=== PATIENT | female | born 1995 | race Caucasian/White ===

== ENCOUNTER → 2018-08-20 12:37 | Outpatient (CLI) | payer OTHER, SELFPAY ==
[2018-08-20 13:29] LABS: Absolute Lymphocyte Count 1.46 X10^3/ul (0.83-4.51); Absolute Neutrophil Count 7.5 X10^3/uL (2.0-7.7); Basophil# 0.02 X10^3/uL; Basophil% 0.2 % (0-1); Eosinophil# 0.14 X10^3/uL; Eosinophils% 1.4 % (0-5); Hematocrit 39.7 % (37-47); Hemoglobin 14.3 g/dl (12.0-15.0); Lymphocyte # 1.46 X10^3/ul (4.0); Lymphocyte % 14.9 % (19-41); Mean Corpuscular Hgb 31.7 pg (27.0-32.0); Mean Platelet Vol. 9.4 fl (6.2-12.0); Monocyte# 0.72 X10^3/uL; Monocyte% 7.3 % (0-10); Neutrophil # 7.47 X10^3/uL (2.7-7.7); Neutrophil % 76.1 % (47-70); Platelet Count 335 K/mm3 (150-450); RBC Distribution Width CV 11.8 % (11.6-14.6); RBC Distribution Width SD 37.6 fl (35.1-43.9); Red Blood Count 4.51 M/mm3 (4.2-5.4); White Blood Count 9.8 K/mm3 (4.4-11.0)
[2018-08-20 13:30] LABS: POSITIVE COUNT NO; POSITIVE DIFFERENTIAL NO; POSITIVE MORPHOLOGY NO
[2018-08-20 15:04] LABS: HIV - WCH Non-Reactive (Nonreactive); Rubella IgG 17.3 IU/mL
[2018-08-20 20:23] LABS: Chlamydia Trachomatis by PCR Negative (Negative); Neisserai gonorrhoeae by PCR Negative (Negative); Probe Check PASS; Sample Adequacy Control PASS; Specimen Processing Control PASS
[2018-08-22 01:17] LABS: Rapid Plasmin Reagin (RPR) NONREACTIVE (NONREACTIVE)
[2018-08-22 09:32] LABS: HEPATITIS B SURFACE AG Negative (Negative)
[2018-08-28 13:48] LABS: HPV APTIMA, High Risk Negative (Negative); HPV Reflexed? YES, CHARGE PATIENT
== END ==
PROVIDERS: Referring Provider Obstetrics & Gynecology; Visit Provider Obstetrics & Gynecology
DX: Z34.90 Encounter for supervision of normal pregnancy, unspecified, unspecified trimester (principal)
CPT/HCPCS: 36415; 85025; 86592; 86703; 86762; 86850; 86900; 87086; 87088; 87340; 87491; 87591; 87624; 88175; G0145

== ENCOUNTER → 2018-11-05 12:55 | Outpatient (CLI) | payer OTHER, MEDICAID, SELFPAY ==
[2018-10-15 09:12] VITALS: BMI 25.1
--- NOTE | 2018-11-05 12:59 | US_ITS ---
STUDY: SECOND AND THIRD TRIMESTER OBSTETRICAL ULTRASOUND REASON FOR EXAM: Female, 23 years old. Routine survey. LMP: June 23, 2018. TECHNIQUE: Transabdominal and Transvaginal TECHNICAL QUALITY: Adequate. PRIOR ULTRASOUND: None. FINDINGS: There is a single intrauterine fetus. The fetus is in a cephalic presentation. There is demonstrated cardiac activity with a heart rate of 146 bpm. There is a normal amniotic fluid volume. The largest amniotic fluid pocket measures 4.8 cm x 4.6 cm. The amniotic fluid index (DANIEL) is normal. The placenta is anterior in location and is not low lying. There are Grade 0 placental changes. The cervix measures 3.2 cm in length. The bilateral adnexal regions are normal. BIOMETRY: BPD: 4.7 cm: 20 weeks, 2 days HC: 17.42 cm: 20 weeks, 0 days AC: 14.3 cm: 19 weeks, 5 days FL: 2.88 cm: 18 weeks, 6 days CI: 80% FL/BPD: 61% FL/HC: FL/AC: 20% HC/AC: 1.22 age by current US: 19 weeks, 5 days. MELVIN by current US: March 27, 2019. Estimated weight: 289 grams, +/- 42 grams, 51 %. Age by LMP: 19 weeks, 2 days. MELVIN by LMP: March 30, 2019. ANATOMY: Gender: Female Cranium: Normal lateral ventricles. Normal choroid plexus. Normal cerebellum. Normal cisterna magna. Normal face, nose and lips. Chest: Normal 4-chamber heart. Abdomen/Pelvis: Normal diaphragm. Normal stomach. Normal abdominal wall. Normal cord insertion. Normal 3 vessel cord. Normal kidneys. Normal bladder. Spine: Normal cervical spine. Normal thoracic spine. Normal lumbar spine. Normal sacrum. Extremities: Normal bilateral upper extremities. Normal bilateral lower extremities. US/OB Anatomy Scan IMPRESSION: There is a single live intrauterine gestation with a mean gestational age of 19 weeks and 5 days. Electronically Signed: Bong Bradford MD at 15:41 EST Tel [phone], Service support ,
--- OUTSIDE RECORDS SUMMARY | 2018-12-22 16:39 | XMS RPT_ITS ---
:1995 Author Organization OHIP Support Name Relationship Address Phone MILADIS DIOR Unavailable 0 + [place], [place] [phone] [place] [address] ENTS Unavailable [address] + [address] [place] [address] GEOFF KAREN Unavailable 0 + [place] [address] MILADIS DIOR Unavailable 0 + [address] ENTS Unavailable [address] + [address] [place] [address] GEOFF, KAREN Unavailable 0 + [place] [address] MILADIS DIOR Unavailable 0 + [place], [place] [phone] [place] [address] ENTS Unavailable [address] + [address] [place] [address] GEOFF, KAREN Unavailable 0 + [place] [address] MILADIS DIOR Unavailable Unavailable + [facility] ENTS Unavailable [address] [place] [address] GEOFF, KAREN Unavailable Unavailable + MILADIS DIOR Unavailable . + [place], [place] [id number] [place] [address] ENTS Unavailable [address] [place] [address] GEOFF KAREN Unavailable . + [place] [address] DIOR, MILADIS Unavailable . + [place] [address] [facility] ENTS Unavailable [address] + [address] [place] [address] GEOFF, KAREN Unavailable . + [place] [address] DIOR, MILADIS Unavailable . + [place] [address] [facility] ENTS Unavailable [address] + [address] [place] [address] GEOFF, KAREN Unavailable . + [place] [address] DIOR, MILADIS Unavailable 0 + [place] [address] [facility] ENTS Unavailable [address] + [address] [place] [address] GEOFF, KAREN Unavailable 0 + [place] [address] [facility] ENTS Unavailable Unavailable + [place] [address] GEOFF, KAREN Unavailable . + [place] [address] [facility] ENTS Unavailable Unavailable + [place] [address] GEOFF, KAREN Unavailable . + [place] [address] Care Team Providers Name Role Phone Alem Rabago Attending Unavailable Primay Care Physicia, No Referring Unavailable Virginia Lugo D.C. Attending Unavailable Sheyla Agosto Attending Unavailable Alem Rabago Attending Unavailable Alem Rabago Attending Unavailable Alem Rabago Referring Unavailable Primay Care Physicia, No Primary Care Unavailable Sheyla Agosto Attending Unavailable Primay Care Physicia, No Referring Unavailable Sheyla Agosto Attending Unavailable Bruce Centeno Attending Unavailable Primay Care Physicia, No Referring Unavailable Sheyla Agosto Attending Unavailable Primay Care Physicia, No Referring Unavailable Sheyla Agosto Attending Unavailable Primay Care Physicia, No Primary Care Unavailable PROBLEMS PROBLEMS DATE TYPE CONDITION / CODE ATTENDING STATUS SOURCE 12/10/2018 Unknown Z34.01 - Encounter Padroni, Sheyla Active [place] for supervision of Community normal first Hospital , first Repository trimester / Z34.01(ICD-10) 12/10/2018 Unknown Z3A.24 - 24 weeks Surendra Sheyla Active [place] gestation of [facility] / Hospital Z3A.24(ICD-10) Repository 10/15/2018 Unknown Z23 - Encounter Sheyla Agosto Active [place] for immunization / [facility] Z23(ICD-10) Hospital Repository 11/28/2018 Unknown Z34.90 - Encounter Hima Active [place] for supervision of [facility] normal , Hospital unspecified, Repository unspecified trimester / Z34.90(ICD-10) PROCEDURES PROCEDURES No Procedure Records FoundRESULTS RESULTS MARBLE MACHINE OPERATOR OFFICE VISIT Observed: 12/10/2018 Status: F Source: [place] REPORT 1:57 PM [facility] [address] [place] [address]. [address] [place] [address] OFFICE VISIT Date of Service: 12/10/18 MR#: [id number] Acct: [id number] Name: YUE BROOKSQUINN Adams Rep #: [id number] : 1995 Provider: HERIBERTO Agosto Age/Sex: 23/F Location: [facility] [place] Status: Signed Intake Vital Signs12/10/18 Body Mass Index (BMI) 25.1 12/10/18 Height 5 ft 1 in 12/10/18 Weight: 146 lb 8 oz 12/10/18 Body Mass Index (BMI) 27.6 12/10/18 Blood Pressure 118/78 Intake Visit Reasons: 24 WEEK OB Turkish Rubber Required: No Is patient in pain?: No Allergies Penicillins Allergy (Mild, Verified 12/10/18 13:42) rash Medications vitamin,calcium,vwppzank-mzdk-jbuer acid tablet 1 tab PO DAILY 08/20/18 [History Confirmed 12/10/18] Last Menstral Period: 06/23/18 Zika: Zika virus screening: Negative : No PFSH PFSH Medical History diarrhea lasting a week (Acute) Family History Mother Crohns disease Sister Crohns disease Grandmother Lung cancer Grandfather Colon cancer Social History Smoking Status: Never smoker alcohol intake: never substance use type: does not use caffeine: Yes what type of physical activity do you participate in: walking frequency: 3-4 times per week seatbelt use: always do you feel safe at home: Yes additional 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 OB Visit MELVIN Calculator Estimated Delivery Date 03/30/19 Based on LMP (certain) 06/23/18 Current WG 24w 2d Number 1 Expected Delivery Route/Plan Specific Issue/Plans flu vaccine: given tdap vaccine: [] rhogam: NA LARC form signed: [] labor support person: Miladis pain management: epidural cut cord/dad catch: cord : yes PP control planned: [] special requests: [] Initial Weight: 130 lb Date Weight BP Urine PrFHR FuHt Pres MoCTX DilationFetal StVisit NoProviderComments E ot v te [place] G Effac lucose ed Visit Notes Visit Date: 12/10/18 No VB, LOF. Some upper back discomfort. Saw Dr. Garcia today. JUANY Borjas on 12/10/18 Visit Date: 11/12/18 no vb lof good fm n oregular ctx Alem Rabago MD on 11/12/18 Visit Date: 10/15/18 Nausea gone. NO VB, LOF. Did have some left sided pain 3 days ago and then stopped after 2 hr. JUANY Borjas on 10/15/18 Visit Date: 09/10/18 Doing well. Nausea improved. No VB, LOF JUANY Borjas on 09/10/18 ACOG First Trimester First Trimester: Discussed Diagnostics Diagnostics Labs Blood Type B POSITIVE 08/20/18 Antibody Screen NEGATIVE 08/20/18 Hct 39.7 % (37-47) 08/20/18 Hgb 14.3 g/dl (12.0-15.0) 08/20/18 Obstetrics Ultrasound 11/05/18 Rubella IgG Antibody 17.3 IU/mL 08/20/18 RPR NONREACTIVE (NONREACTIVE) 08/20/18 Hep Bs Antigen Negative (Negative) 08/20/18 Chlam trachomat DNA PCR Negative (Negative) 08/20/18 N.gonorrhoeae DNA (PCR) Negative (Negative) 08/20/18 Details: HIV: Urine Culture: Sequential Screen: NIPT Screen: ROS Const Reports system reviewed and no additional complaints, except as docu GI Denies nausea, Denies vomiting, Denies abdominal pain Exam Const General: cooperative Nutritional Appearance: well nourished GI Palpation: soft, nontender, other (gravid) Results [id number] Office Urine Glucose Negative Last Edit by Briseida Fraser on 12/10/18 13:44 Office Urine Protein Negative Last Edit by Briseida Fraser on 12/10/18 13:44 Assessment AND Plan Problems 1. Encounter for supervision of normal first in first trimester Z34.01 PRR MELVIN 03/30/19 monaefriensalvador Walter 2. 24 weeks gestation of Z3A.24 genetic, carrier, and NTD screening offered-considering Plan Orders placed: none Plans to continue to see Dr. Garcia; Heat, stretching etc Reviewed of labor precautions, movement/kick counts ACOG trimester education reviewed and updated See problem list details for updated plan of care Gestational age appropriate handout given RTO: 4 weeks Orders Orders: Coding Level of Care Code Off vis,est,level 3 Diagnoses Encounter for supervision of normal first in first trimester Z34.01 Trimester: first trimester 24 weeks gestation of Z3A.24 Weeks of gestation: 24 weeks 12/10/18 1357 <Electronically signed by Sheyla HARRINGTON> Date Sheyla HARRINGTON Cosigner Signature: Date (if applicable) CC: MARBLE MACHINE OPERATOR OFFICE VISIT Observed: 11/15/2018 Status: F Source: [place] REPORT 4:03 AM [facility] [address] [place] [address]. [address] [place] [address] OFFICE VISIT Date of Service: 11/12/18 MR#: [id number] Acct: [id number] Name: ANGELIQUE BROOKS Rep #: [id number] : 1995 Provider: Alem Rabago MD Age/Sex: 23/F Location: [facility] Status: Signed Intake Vital Signs11/12/18 Body Mass Index (BMI) 25.1 11/12/18 Weight: 138 lb 8 oz 11/12/18 Blood Pressure 124/82 H 10/15/18 Body Mass Index (BMI) 25.1 Intake Visit Reasons: 20 WEEK OB Chief Complaint: Est ob Is patient in pain?: No Allergies Penicillins Allergy (Mild, Verified 11/12/18 10:05) rash Medications vitamin,calcium,kbeuxdur-gvim-ibksz acid tablet 1 tab PO DAILY 08/20/18 [History Confirmed 10/15/18] Last Menstral Period: 06/23/18 Zika: Zika virus screening: Negative : No PFSH PFSH Medical History diarrhea lasting a week (Acute) Family History Mother Crohns disease Sister Crohns disease Grandmother Lung cancer Grandfather Colon cancer Social History Smoking Status: Never smoker alcohol intake: never substance use type: does not use caffeine: Yes what type of physical activity do you participate in: walking frequency: 3-4 times per week seatbelt use: always do you feel safe at home: Yes additional 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 OB Visit MELVIN Calculator Estimated Delivery Date 03/30/19 Based on LMP (certain) 06/23/18 Current WG 20w 5d Number 1 Expected Delivery Route/Plan Specific Issue/Plans flu vaccine: given tdap vaccine: [] rhogam: NA LARC form signed: [] labor support person: Miladis pain management: epidural cut cord/dad catch: cord : yes PP control planned: [] special requests: [] Initial Weight: 130 lb Date Weight BP Urine PrFHR FuHt Pres MoCTX DilationFetal StVisit NoProviderComments E ot v te [place] G Effac lucose ed Visit Notes Visit Date: 11/12/18 no vb lof good fm n oregular ctx Alem Rabago MD on 11/12/18 Visit Date: 10/15/18 Nausea gone. NO VB, LOF. Did have some left sided pain 3 days ago and then stopped after 2 hr. JUANY Borjas on 10/15/18 Visit Date: 09/10/18 Doing well. Nausea improved. No VB, LOF JUANY Borjas on 09/10/18 ACOG First Trimester First Trimester: Discussed Diagnostics Diagnostics Labs Blood Type B POSITIVE 08/20/18 Antibody Screen NEGATIVE 08/20/18 Hct 39.7 % (37-47) 08/20/18 Hgb 14.3 g/dl (12.0-15.0) 08/20/18 Obstetrics Ultrasound 11/05/18 Rubella IgG Antibody 17.3 IU/mL 08/20/18 RPR NONREACTIVE (NONREACTIVE) 08/20/18 Hep Bs Antigen Negative (Negative) 08/20/18 Chlam trachomat DNA PCR Negative (Negative) 08/20/18 N.gonorrhoeae DNA (PCR) Negative (Negative) 08/20/18 Details: HIV: Urine Culture: Sequential Screen: NIPT Screen: Results [email or web address] Office Urine Glucose Negative Last Edit by Luly Grimes on 11/12/18 10:16 Office Urine Protein Negative Last Edit by Luly Grimes on 11/12/18 10:16 Assessment AND Plan Problems 1. Encounter for supervision of normal first in first trimester Z34.01 PRR MELVIN 03/30/19 boyfriend Miladis 2. 16 weeks gestation of Z3A.16 genetic, carrier, and NTD screening offered-considering 3. ASCUS (atypical squamous cells of undetermined significance) on gynecologic Papanicolaou smear complicating , antepartum ASCUS PAP - HPV Repeat in one year. Plan ACOG trimester education reviewed and updated. see problem list details for updated plan management information and see below for orders placed at this visit. GA appropriate handout given. Orders Orders: Coding Level of Care Code OB Routine Diagnoses Encounter for supervision of normal first in first trimester Z34.01 Trimester: first trimester 16 weeks gestation of Z3A.16 Weeks of gestation: 16 weeks ASCUS (atypical squamous cells of undetermined significance) on gynecologic Papanicolaou smear complicating , antepartum 11/15/18 0403 <Electronically signed by Alem Rabago MD> Date lAem Rabago MD Cosigner Signature: Date (if applicable) CC: OB ANATOMY SCAN Observed: 11/05/2018 Status: F Source: [place] 12:59 PM [facility] Imaging Services [address] [place] [address] OB Anatomy Scan MR#: [id number] Acct: [id number] Name: ANGELIQUE BROOKS Rep #: [id number] : 1995 F 23 From: Bong Bradford MD PCP: Care Physician, No Primary Status: REG CLI Study: OB Anatomy Scan Date of Exam: 11/05/18 Exam# [id number] Ordering Dr: Alem Rabago MD STUDY: SECOND AND THIRD TRIMESTER OBSTETRICAL ULTRASOUND REASON FOR EXAM: Female, 23 years old. Routine survey. LMP: June 23, 2018. TECHNIQUE: Transabdominal and Transvaginal TECHNICAL QUALITY: Adequate. PRIOR ULTRASOUND: None. FINDINGS: There is a single intrauterine fetus. The fetus is in a cephalic presentation. There is demonstrated cardiac activity with a heart rate of 146 bpm. There is a normal amniotic fluid volume. The largest amniotic fluid pocket measures 4.8 cm x 4.6 cm. The amniotic fluid index (DANIEL) is normal. The placenta is anterior in location and is not low lying. There are Grade 0 placental changes. The cervix measures 3.2 cm in length. The bilateral adnexal regions are normal. BIOMETRY: BPD: 4.7 cm: 20 weeks, 2 days HC: 17.42 cm: 20 weeks, 0 days AC: 14.3 cm: 19 weeks, 5 days FL: 2.88 cm: 18 weeks, 6 days CI: 80% FL/BPD: 61% FL/HC: FL/AC: 20% HC/AC: 1.22 age by current US: 19 weeks, 5 days. MELVIN by current US: March 27, 2019. Estimated weight: 289 grams, +/- 42 grams, 51 %. Age by LMP: 19 weeks, 2 days. MELVIN by LMP: March 30, 2019. ANATOMY: Gender: Female Cranium: Normal lateral ventricles. Normal choroid plexus. Normal cerebellum. Normal cisterna magna. Normal face, nose and lips. Chest: Normal 4-chamber heart. Abdomen/Pelvis: Normal diaphragm. Normal stomach. Normal abdominal wall. Normal cord insertion. Normal 3 vessel cord. Normal kidneys. Normal bladder. Spine: Normal cervical spine. Normal thoracic spine. Normal lumbar spine. Normal sacrum. Extremities: Normal bilateral upper extremities. Normal bilateral lower extremities. US/OB Anatomy Scan IMPRESSION: There is a single live intrauterine gestation with a mean gestational age of 19 weeks and 5 days. Electronically Signed: Bong Bradford MD at 15:41 EST Tel [phone], Service support , CC: No Primary Care Physician; Alem Rabago MD Plaster Helper: Signed MARBLE MACHINE OPERATOR OFFICE VISIT Observed: 10/15/2018 Status: F Source: [place] REPORT 10:05 AM [facility] [address] [place] [address] OFFICE VISIT Date of Service: 10/15/18 MR#: [id number] Acct: [id number] Name: GOANGELIQUE PARK Rep #: [id number] : 1995 Provider: HERIBERTO Agosto Age/Sex: 23/F Location: [facility] Status: Signed Intake Vital Signs10/15/18 Height 5 ft 1 in 10/15/18 Weight: 133 lb 10/15/18 Body Mass Index (BMI) 25.1 10/15/18 Blood Pressure 110/78 Intake Visit Reasons: est ob Turkish Rubber Required: No Is patient in pain?: No Allergies Penicillins Allergy (Mild, Verified 10/15/18 09:14) rash Medications promethazine 12.5 mg tablet 12.5 mg PO Q6H PRN #60 tab 08/07/18 [Rx Confirmed 10/15/18] vitamin,calcium,fazwvbbx-soxl-wzbhd acid tablet 1 tab PO DAILY 08/20/18 [History Confirmed 10/15/18] azithromycin 250 mg tablet 250 mg PO QDAY #12 tab 09/18/18 [Rx Confirmed 10/15/18] Last Menstral Period: 06/23/18 Zika: Zika virus screening: Negative : No PFSH PFSH Medical History diarrhea lasting a week (Acute) Family History Mother Crohns disease Sister Crohns disease Grandmother Lung cancer Grandfather Colon cancer Social History Smoking Status: Never smoker alcohol intake: never substance use type: does not use caffeine: Yes what type of physical activity do you participate in: walking frequency: 3-4 times per week seatbelt use: always do you feel safe at home: Yes additional 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 OB Visit MELVIN Calculator Estimated Delivery Date 03/30/19 Based on LMP (certain) 06/23/18 Current WG 16w 2d Number 1 Expected Delivery Route/Plan Specific Issue/Plans flu vaccine: given tdap vaccine: [] rhogam: NA LARC form signed: [] labor support person: Miladis pain management: epidural cut cord/dad catch: cord : yes PP control planned: [] special requests: [] Initial Weight: Not Recorded Date Weight BP Urine PrFHR FuHt Pres MoCTX DilationFetal StVisit NoProviderComments E ot v te GA G Effac lucose ed Visit Notes Visit Date: 10/15/18 Nausea gone. NO VB, LOF. Did have some left sided pain 3 days ago and then stopped after 2 hr. JUANY Borjas on 10/15/18 Visit Date: 09/10/18 Doing well. Nausea improved. No VB, LOF JUANY Borjas on 09/10/18 ACOG First Trimester First Trimester: Discussed Diagnostics Diagnostics Labs Blood Type B POSITIVE 08/20/18 Antibody Screen NEGATIVE 08/20/18 Hct 39.7 % (37-47) 08/20/18 Hgb 14.3 g/dl (12.0-15.0) 08/20/18 Rubella IgG Antibody 17.3 IU/mL 08/20/18 RPR NONREACTIVE (NONREACTIVE) 08/20/18 Hep Bs Antigen Negative (Negative) 08/20/18 Chlam trachomat DNA PCR Negative (Negative) 08/20/18 N.gonorrhoeae DNA (PCR) Negative (Negative) 08/20/18 Details: HIV: Urine Culture: Sequential Screen: NIPT Screen: ROS Const Reports system reviewed and no additional complaints, except as docu GI Denies nausea, Denies vomiting, Denies abdominal pain Exam Const General: cooperative Nutritional Appearance: well nourished GI Palpation: soft, nontender, other (gravid) Office Meds Flucelvax Quad 0231-6333 (PF) Performing Provider: JUANY Borjas Administered by: Briseida Fraser on 10/15/18 09:51 Dose Route Admin Location Lot Number Expiration Date [facility] Investigator Vice 60 mcg [facility] [place] 534549 03/24/19 51772-757-58 [employer]. Results [id number] Office Urine Glucose Negative Last Edit by Briseida Fraser on 10/15/18 09:10 Office Urine Protein Negative Last Edit by Briseida Fraser on 10/15/18 09:10 Assessment AND Plan Problems 1. Encounter for supervision of normal first in first trimester Z34.01 PRR MELVIN 03/30/19 boyfriend Miladis 2. 16 weeks gestation of Z3A.16 genetic, carrier, and NTD screening offered-considering Plan Orders placed: AFP, flu and anatomy US with MFM Reviewed of labor precautions, movement/kick counts ACOG trimester education reviewed and updated See problem list details for updated plan of care Gestational age appropriate handout given RTO: 4 weeks Orders Orders: Medications Discontinued: Flucelvax Quad 4131-0442 (PF) (flu vac qs 2018(4 yr60 mcg (0.5 mL) IM ONCE 1 mL 0RF NS Z23 up)CD(PF)) Discontinued Reason: Office Medicat ion has been Documented as given Coding Level of Care Code Off vis,est,level 3 Diagnoses Encounter for supervision of normal first in first trimester Z34.01 Trimester: first trimester 16 weeks gestation of Z3A.16 Weeks of gestation: 16 weeks 10/15/18 1005 <Electronically signed by Sheyla HARRINGTON> Date Sheyla HARRINGTON Cosigner Signature: Date (if applicable) CC: URGENT CARE VISIT Observed: 09/18/2018 Status: F Source: [place] REPORT 4:57 PM [facility] [address] [place] [address] OFFICE VISIT Date of Service: 09/18/18 MR#: [id number] Acct: [id number] Name: ANGELIQUE BROOKS Rep #: [id number] : 1995 Provider: Bruce XIONG Age/Sex: 23/F Location: [facility] [place] Status: Signed Intake Vital Signs09/18/18 Height 5 ft 1 in 09/18/18 Weight: 130 lb 09/18/18 Body Mass Index (BMI) 24.5 09/18/18 Blood Pressure 122/76 H Intake Visit Reasons: SINUS INFECTION/COUGH Chief Complaint: sinus pressure, postnasal drip Turkish Rubber Required: No Accompanied by: self Is patient in pain?: No Allergies Penicillins Allergy (Mild, Verified 09/18/18 16:38) rash Medications promethazine 12.5 mg tablet 12.5 mg PO Q6H PRN #60 tab 08/07/18 [Rx Confirmed 09/18/18] vitamin,calcium,kfzpmhdf-aqwq-nxpsq acid tablet 1 tab PO DAILY 08/20/18 [History Confirmed 09/18/18] azithromycin 250 mg tablet 250 mg PO QDAY #12 tab 09/18/18 [Rx Confirmed 09/18/18] PFSH Medical History diarrhea lasting a week (Acute) Family History Mother Crohns disease Sister Crohns disease Grandmother Lung cancer Grandfather Colon cancer Social History Smoking Status: Never smoker alcohol intake: never substance use type: does not use caffeine: Yes what type of physical activity do you participate in: walking frequency: 3-4 times per week seatbelt use: always do you feel safe at home: Yes additional 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 She notes accompanying nausea, stating she is throwing up phlegm as a result. She notes currently having an uneventful . She notes occasional chills though no complaints of fever, sweats, rash, cough, chest pain/shortness of breath. She notes no changes in bowel or bladder function or character. She notes no fwlu-zkt-xyayoan products have been tried to assist with symptoms. She notes no other associated symptoms and no other alleviating or aggravating factors. ROS Const Constitutional: No other (ROS negative x10 other than as noted above) Exam Const General: cooperative, healthy appearing, no acute distress, comfortable Nutritional Appearance: average body habitus Orientation: alert, awake, oriented x3 HENMT Head: normal to inspection Ears: hearing grossly normal bilaterally, external ears normal, TM's normal bilaterally, EAC's normal Nose: external nose normal, nares normal, septum normal, no nasal discharge Face and sinus: normal facial exam, face symmetric, sinus tenderness ethmoid Mouth: oral mucosae normal, lip normal, oropharynx normal, tongue normal Teeth and gingiva: gingiva normal, dentition normal Throat: uvula midline, tonsils normal, posterior oropharynx normal, no postnasal drainage (Purulent) Eyes General: appearance normal, both eyes and all related structures Neck Neck: normal visual inspection, full ROM, no meningeal signs, supple, lymphadenopathy (R>L anterior cervical node swelling and tender to palpation) Neck mass: No Thyroid: thyroid normal Chest Chest palpation AND inspection: normal inspection of the chest Resp Effort AND Inspection: normal respiratory effort, able to speak in complete sentences, symmetric chest movement, no cough Auscultation: Bilateral: Clear to Auscultation Cardio Palpation: normal PMI Rate: regular rate Rhythm: regular rhythm Heart Sounds: S1 normal, S2 normal, no gallops, no murmurs, no rubs Pulses: radial pulses present GI Inspection: normal to inspection Skin General: no rashes or lesions noted Neuro General: alert, awake, oriented x3, gait normal Cognition: normal cognition Speech: speech normal Gait: normal gait Motor: muscle tone normal throughout Sensory Exam: no sensory deficits noted Psych Appearance: grossly normal Mental Status: mental status grossly normal Mood: congruent mood Affect: normal affect Speech and Movement: speech and movement normal Attitude: cooperative Thought Process: normal Thought Content: normal Judgment: judgment good Assessment AND Plan Problems 1. Sinusitis J32.9 Plan 11-day course of azithromycin as prescribed today. Clear fluids, rest, warm facial compresses as instructed today. Tylenol as needed for symptomatic relief. Follow-up with PCP in 3-5 days should symptoms not improve, sooner should symptoms worsen or any other concerns develop. Patient states acknowledging understanding all the above. This note was generated with mobilePeople dictation software. It may contain incorrect words, spelling, and punctuation that were not noted in checking the note before signing. Medications New: azithromycin 2 tablets today, then 1 tablet daily on days 2250 mg PO QDAY 12 tabs 0RF through 11 Coding Level of Care Code Off vis,est,level 3 Diagnoses Sinusitis J32.9 09/18/18 3184 <Electronically signed by Bruce XIONG> Date Bruce Lewis Signature: Date (if applicable) CC: MARBLE MACHINE OPERATOR OFFICE VISIT Observed: 09/10/2018 Status: F Source: [place] REPORT 2:12 PM [facility] [address] [place] [address] OFFICE VISIT Date of Service: 09/10/18 MR#: [id number] Acct: [id number] Name: ANGELIQUE BROOKS Rep #: [id number] : 1995 Provider: HERIBERTO Agosto Age/Sex: 23/F Location: [facility] [place] Status: Signed Intake Vital Signs09/10/18 Height 5 ft 1 in 09/10/18 Weight: 132 lb 09/10/18 Body Mass Index (BMI) 24.9 09/10/18 Blood Pressure 122/70 H Intake Visit Reasons: 12 weeks Turkish Rubber Required: No Is patient in pain?: No Allergies Penicillins Allergy (Mild, Verified 09/10/18 13:49) rash Medications promethazine 12.5 mg tablet 12.5 mg PO Q6H PRN #60 tab 08/07/18 [Rx] vitamin,calcium,gtsrvbqc-leyg-pgihn acid tablet 1 tab PO DAILY 08/20/18 [History Confirmed 08/20/18] Last Menstral Period: 06/23/18 Zika: Zika virus screening: Negative : No PFSH PFSH Family History Mother Crohns disease Sister Crohns disease Grandmother Lung cancer Grandfather Colon cancer Social History Smoking Status: Never smoker alcohol intake: never substance use type: does not use caffeine: Yes what type of physical activity do you participate in: walking frequency: 3-4 times per week seatbelt use: always do you feel safe at home: Yes additional 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 OB Visit MELVIN Calculator Estimated Delivery Date 03/30/19 Based on LMP (certain) 06/23/18 Current WG 11w 2d Number 1 Specific Issue/Plans flu vaccine: [] tdap vaccine: [] rhogam: [] LARC form signed: [] labor support person: Miladis pain management: [] cut cord/dad catch: [] : yes PP control planned: [] special requests: [] Initial Weight: Not Recorded Date Weight BP Urine PrFHR FuHt Pres MoCTX DilationFetal StVisit NoProviderComments E ot v te GA G Effac lucose ed Visit Notes Visit Date: 09/10/18 Doing well. Nausea improved. No VB, LOF Sheyla Agosto, NEON TUBE PUMPER-C on 09/10/18 Diagnostics Diagnostics Labs Blood Type B POSITIVE 08/20/18 Antibody Screen NEGATIVE 08/20/18 Hct 39.7 % (37-47) 08/20/18 Hgb 14.3 g/dl (12.0-15.0) 08/20/18 Rubella IgG Antibody 17.3 IU/mL 08/20/18 RPR NONREACTIVE (NONREACTIVE) 08/20/18 Hep Bs Antigen Negative (Negative) 08/20/18 Chlam trachomat DNA PCR Negative (Negative) 08/20/18 N.gonorrhoeae DNA (PCR) Negative (Negative) 08/20/18 Details: HIV: Urine Culture: Sequential Screen: NIPT Screen: Results [id number] Office Urine Glucose Negative Last Edit by Priya Whitehead on 09/10/18 13:52 Office Urine Protein Negative Last Edit by Priya Whitehead on 09/10/18 13:52 Assessment AND Plan Problems 1. Encounter for supervision of normal first in first trimester Z34.01 MELVIN 03/30/19 boyfriend Miladis 2. 8 weeks gestation of Z3A.08 genetic, carrier, and NTD screening offered-considering 3. ASCUS (atypical squamous cells of undetermined significance) on gynecologic Papanicolaou smear complicating , antepartum ASCUS PAP - HPV Repeat in one year. Plan Orders placed: none Still considering NIPT Discussed ASCUS pap with negative HPV Reviewed of labor precautions, movement/kick counts ACOG trimester education reviewed and updated See problem list details for updated plan of care Gestational age appropriate handout given RTO: 4 weeks Orders Orders: Coding Level of Care Code OB Routine Diagnoses Encounter for supervision of normal first in first trimester Z34.01 Trimester: first trimester 8 weeks gestation of Z3A.08 Weeks of gestation: 8 weeks ASCUS (atypical squamous cells of undetermined significance) on gynecologic Papanicolaou smear complicating , antepartum 09/10/18 1412 <Electronically signed by Sheyla HARRINGTON> Date Sheyla HARRINGTON Cosigner Signature: Date (if applicable) CC: MARBLE MACHINE OPERATOR OFFICE VISIT Observed: 08/23/2018 Status: F Source: [place] REPORT 11:23 AM [facility] [address] [place] [address] OFFICE VISIT Date of Service: 08/20/18 MR#: [id number] Acct: [id number] Name: CECILIAANGELIQUE L Rep #: [id number] : 1995 Provider: Alem Rabago MD Age/Sex: 23/F Location: [facility] [place] Status: Signed Intake Vital Signs08/20/18 Height 5 ft 1 in 08/20/18 Weight: 128 lb 8 oz 08/20/18 Body Mass Index (BMI) 24.3 08/20/18 Blood Pressure 118/68 Intake Visit Reasons: NOB - LMP 06/25 Chief Complaint: NEW OB Turkish Rubber Required: No Is patient in pain?: No Allergies Penicillins Allergy (Mild, Verified 08/20/18 11:50) rash Medications promethazine 12.5 mg tablet 12.5 mg PO Q6H PRN #60 tab 08/07/18 [Rx] vitamin,calcium,nnkkdwoq-otok-fahqy acid tablet 1 tab PO DAILY 08/20/18 [History Confirmed 08/20/18] Last Menstral Period: 06/22/18 Zika: Zika virus screening: Negative : No PFSH PFSH Family History Mother Crohns disease Sister Crohns disease Grandmother Lung cancer Grandfather Colon cancer Social History Smoking Status: Never smoker alcohol intake: never substance use type: does not use caffeine: Yes what type of physical activity do you participate in: walking frequency: 3-4 times per week seatbelt use: always do you feel safe at home: Yes additional 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 OB Visit Comments: viable IUP consistent with LMP fht present Menstrual History Last Menstral Period: 06/22/18 Reported LMP: definite Normal amount/duration: Yes On hormonal BC at conception: No Antepartum Record Genetic Screening: Congenital Heart Defect: Other, Neural Tube Defect: Other, Hemoglobinopathy Or Carrier: Other, Cystic Fibrosis: Other, Chromosome Abnormality: Other, Alexander-Sachs: Other, Hemophilia: Other, Intellectual Disability/Autism: Other, Recurrent Loss/Stillbirth: Other, Other Structural Defect: Other, Other Genetic Disease: Other, Maternal Metabolic Disorder: Other Infection History: Live with someone with TB or Exposed to TB: No, Patient or Partner has history of Genital Herpes: No, Rash or Viral illness since last mentrual period: No, Prior GBS-Infected child: No, History of STD: No, HIV Infection: No, History of Hepatitis: No, Recent travel outside of [place]: No, Concern for Hep exposure: No, Varicella immune: Yes Medical History Medical History: Negative: Diabetes, Hypertension, Heart disease, Auto-immune disorder, Kidney disease/UTI, Neurologic/epilepsy, Psychiatric, Depression/ depression, Hepatitis/liver disease, Varicosities/phlebitis, Thyroid dysfunction, Trauma/domestic violence, History of blood transfusions, D (Rh) Sensitized, Pulmonary (e.g.,TB,Asthma), Seasonal allergies, Drug/latex allergies/reactions, Breast, First Aid Teacher surgery, Operations/hospitalizations, Anesthetic complications, History of abnormal pap, Uterine anomaly/ania, Infertility, Anti-retroviral treatment, Relevant family history, Other ACOG First Trimester First Trimester: Discussed ROS Const Denies fever(s), Reports system reviewed and no additional complaints, except as docu, Reports fatigue Eyes Reports system reviewed and no additional complaints, except as docu ENT Reports system reviewed and no additional complaints, except as docu Card Denies chest pain, Denies shortness of breath Resp Reports system reviewed and no additional complaints, except as docu, Denies shortness of breath, Denies cough GI Reports nausea, Denies abdominal pain Reports system reviewed and no additional complaints, except as docu Musc Reports system reviewed and no additional complaints, except as docu Skin/Breast Reports system reviewed and no additional complaints, except as docu Neuro Yes system reviewed and no additional complaints, except as docu Psych Reports system reviewed and no additional complaints, except as docu Endo Reports fatigue, Reports system reviewed and no additional complaints, except as docu Exam Const General: healthy appearing, comfortable, no acute distress Orientation: alert [facility] Head: normal to inspection, atraumatic, normocephalic Ears: external ears normal, hearing grossly normal bilaterally Nose: nares normal, external nose normal Mouth: oral mucosae normal Teeth and gingiva: dentition normal Eyes General: appearance normal, both eyes and all related structures Neck Neck: no lymphadenopathy, supple, normal visual inspection Thyroid: thyroid normal Resp Effort AND Inspection: normal respiratory effort GI Inspection: normal to inspection Palpation: soft, no hepatosplenomegaly General: bladder normal to palpation External Female Exam: normal external appearance, normal appearance of the urethra Urethra: normal appearance of the urethra Speculum Exam - Vagina: normal appearance of the vagina, normal vaginal discharge Speculum Exam - Cervix: normal appearance of the cervix Bimanual Exam- Vagina AND Uterus: bladder normal to palpation, normal bimanual exam, uterus non-tender, other Bimanual Exam- Adnexa, other: adnexae non-tender Skin General: no rashes or lesions noted Neuro Motor: muscle tone normal throughout, no movement abnormalities noted Extrem General: normal to inspection, full ROM Assessment AND Plan Problems 1. 8 weeks gestation of Z3A.08 genetic, carrier, and NTD screening offered. 2. Encounter for supervision of normal first in first trimester Z34.01 MELVIN 03/30/19 boyfriensalvador Walter Plan Patient oriented to practice and discussed care expectations and screenings. AC book offered to patient. Discussed routine and specially indicated labs if needed- patient consents to testing. see problem list details for plan information. Optional screening including carrier screenings, neural tube defect screening, sequential screening, and NIPT screening offered to patient and patient chose: considering Orders Orders: Supplemental Info AC book given and patient encouraged to read about nutrition, exercise, weight gain, and food avoidance in . Coding Level of Care Code OB Routine Diagnoses 8 weeks gestation of Z3A.08 Weeks of gestation: 8 weeks Encounter for supervision of normal first in first trimester Z34.01 Trimester: first trimester 08/23/18 1123 <Electronically signed by Alem Rabago MD> Date Alem Rabago MD Cosigner Signature: Date (if applicable) CC: CT/NG [facility] BY PCR Collected: 08/20/2018 Status: F Source: [place] 5:34 PM [facility] TYPE CODE TESTS RESULT OUT OF RANGE REFERENCE UNITS LAB L8200.2100 Negative Normal Chlam Negative Trac PCR LAB L8200.2200 Negative Normal NG by Negative PCR Performed By: #### L8200.2000 #### [facility] [address] [place], [address] Observed: 08/20/2018 Status: F Source: [place] CULTURE, URINE 5:34 PM [facility] Urine Culture ORGANISM 1: Mixed Gram Positive Organisms [place] Count <1000 MIX CULTURE Mixed contaminants. Submit a new specimen if indicated. Performed By: #### M100.0650 #### [facility] [address], [address] CBC W/DIFF, AUTOMATED Collected: 08/20/2018 Status: F Source: YERMO 12:42 PM [facility] TYPE CODE TESTS RESULT OUT OF RANGE REFERENCE UNITS LAB L100.1000 4.4-11.0 K/mm3 Normal WBC 9.8 LAB L100.1200 4.2-5.4 M/mm3 Normal RBC 4.51 LAB L100.1300 12.0-15.0 g/dl Normal HGB 14.3 LAB L100.1400 37-47 % Normal HCT 39.7 LAB L100.1500 81-99 fL Normal MCV 88.0 LAB L100.1600 27.0-32.0 pg Normal MCH 31.7 LAB L100.1700 32-36 g/gl Normal MCHC 36.0 LAB L100.1810 11.6-14.6 % Normal RDW CV 11.8 LAB L100.1820 35.1-43.9 fl Normal RDW SD 37.6 LAB L100.1900 150-450 K/mm3 Normal PLT 335 LAB L100.2000 6.2-12.0 fl Normal MPV 9.4 LAB L100.2100 47-70 % High NEUT% 76.1 LAB L100.2200 19-41 % Low LY% 14.9 LAB L100.2300 0-10 % Normal MONO% 7.3 LAB L100.2400 0-5 % Normal EO% 1.4 LAB L100.2500 0-1 % Normal BASO% 0.2 LAB L100.2550 0.0-0.9 % Normal IM GRAN % 0.100 Result Comment: IG% - Immature Granulocytes (promyelocytes, myelocytes and metamyelocytes) > 1% indicates that a LEFT SHIFT is Present. LAB L100.2620 2.0-7.7 X10 3/uL Normal Absolute Neut 7.5 LAB L100.2720 0.83-4.51 X10 3/ul Normal Absolute Lymph 1.46 Performed By: #### L100.0100 #### [facility] [address] [place], [place], [id number] TYPE AND SCREEN Collected: 08/20/2018 Status: F Source: YERMO 12:42 PM [facility] Order Comment: Reason for Type AND Screen/Red Cells: TYPE CODE TESTS RESULT OUT OF RANGE REFERENCE UNITS LAB B10.0800 B Normal BLOOD TYPE GEL POSITIVE LAB B100.4000 Normal Antibody NEGATIVE Screen Performed By: #### B101.7450 #### [facility] [address] [facility] [place], [place], [id number] RUBELLA IGG Collected: 08/20/2018 Status: F Source: [place]LEX 12:42 PM [facility] TYPE CODE TESTS RESULT OUT OF RANGE REFERENCE UNITS LAB L509.4000 IU/mL Normal Rubella IgG 17.3 Result Comment: Antibody results Interpretation of Immune Status < 5 IU/ml Presumed Non-immune 5 - < 10 IU/ml Equivocal > or = 10 IU/ml Presumed Immune Performed By: #### L509.4000, L3890.6005, L700.5000 #### [facility] [place], [address] HIV - WCH Collected: 08/20/2018 Status: F Source: [place] 12:42 PM [facility] TYPE CODE TESTS RESULT OUT OF RANGE REFERENCE UNITS LAB L3890.6005 Nonreactive Normal HIV - [facility] Non-Reactive Performed By: #### L509.4000, L3890.6005, L700.5000 #### [facility] [facility]. [place], [place], [id number] RAPID PLASMIN REAGIN Collected: 08/20/2018 Status: F Source: [place] (RPR) 12:42 PM [facility] TYPE CODE TESTS RESULT OUT OF REFERENCE UNITS RANGE LAB L700.5000 NONREACTIVE NONREACTIVE Normal RPR Performed By: #### L509.4000, L3890.6005, L700.5000 #### [facility]. [facility] [address] HEPATITIS B SURFACE Collected: 08/20/2018 Status: F Source: [place] AG 12:42 PM [facility] TYPE CODE TESTS RESULT OUT OF RANGE REFERENCE UNITS LAB L3100.0400 Negative Normal HB Negative SURF AG Result Comment: Performed at: [address] [id number] Engineering Technician Parking: Sukhdev Davis PhD, Phone: [phone] Performed By: #### L3100.0390 #### [facility] (refer to report for specific site) refer to report for address and phone number PAP I-G W/RFX Collected: 08/20/2018 Status: F Source: [place] HRHPV-APTIMA 12:15 PM [facility] Order Comment: CYTOLOGY INFORMATION: - CLINICAL INFORMATION: HYSTERECTOMY - DATE LMP/MENOPAUSE: LMP - COLLECTION VIAL: Thin Prep Vial - TERRAZZO MECHANIC SOURCE: CERVICAL - COLLECTION TECHNIQUE: CX BROOM ONLY Specimen Comment: [id number] Specimen Comment: Source.............Cervix Specimen Comment: LMP / Prev Treat...Hyst Specimen Comment: No. of containers..01 ThinPrep Vial TYPE CODE TESTS RESULT OUT OF REFERENCE UNITS RANGE LAB L7400.0800 . High DIAGN Comment Result Comment: EPITHELIAL CELL ABNORMALITY. ATYPICAL SQUAMOUS CELLS OF UNDETERMINED SIGNIFICANCE. LAB L7400.0900 . Normal ADEQ Comment Result Comment: Satisfactory for evaluation. Endocervical and/or squamous metaplastic cells (endocervical component) are present. LAB L7400.1300 . High RECOMM Comment Result Comment: Suggest follow up as clinically appropriate. LAB L7400.1400 . Normal PERFORM Comment Result Comment: Tom Portillo, Stove Cleaner (ASCP) LAB L7400.1700 . Normal SIGN Comment Result Comment: Dalton Collins MD, Pathologist LAB L7400.1720 . Normal Path prov. Comment ICD9 Result Comment: R87.610 LAB L7400.2575 . Normal TEST METHOD Comment Result Comment: This liquid based ThinPrep(R) pap test was screened with the use of an image guided system. LAB L7400.2600 . Normal . COMM LAB L7400.2700 . Normal PAPSMR Comment Result Comment: The Pap smear is a screening test designed to aid in the detection of premalignant and malignant conditions of the uterine cervix. It is not a diagnostic procedure and should not be used as the sole means of detecting cervical cancer. Both false-positive and false-negative reports do occur. LAB L7400.2760 Negative Normal HPV APTIMA, Negative HR Result Comment: This test detects fourteen high-risk HPV types (16/18/31/33/35/39/45/ 51/52/56/58/59/66/68) without differentiation. Performed at: - [facility] [address] [place], [place] [id number] Engineering Technician Parking: Jennifer Escobedo MD, Phone: [phone] Performed at: =G - [facility] [address] [place]rezTwin [place], [place] [id number] Engineering Technician Parking: Jennifer Escobedo MD, Phone: [phone] LAB L5646.6943 . Normal HPV RFLX Comment Result Comment: See below for HPV testing results. Performed By: #### L7400.0353 #### [facility] (refer to report for specific site) refer to report for address and phone number MARBLE MACHINE OPERATOR OFFICE VISIT Observed: 06/25/2018 Status: F Source: [place] REPORT 4:37 PM [facility] [address] [place] [address] OFFICE VISIT Date of Service: 06/25/18 MR#: [id number] Acct: [id number] Name: ANGELIQUE BROOKS Rep #: [id number] : 1995 Provider: HERIBERTO Agosto Age/Sex: 23/F Location: [facility] [place] Status: Signed Intake Vital Signs06/25/18 Height 5 ft 1 in 06/25/18 Weight: 128 lb 6 oz 06/25/18 Body Mass Index (BMI) 24.3 06/25/18 Blood Pressure 123/79 Intake Visit Reasons: PAINFUL PERIODS, HAIR FALLING OUT Turkish Rubber Required: No Is patient in pain?: No Allergies Penicillins Allergy (Mild, Verified 06/25/18 14:29) rash Medications NK [NK] 06/25/18 [History Confirmed 06/25/18] Is last menstrual period known: Yes Last Menstral Period: 06/22/18 Post menopausal: No Patient : No : No PFSH Surgical History History of tooth extraction (Resolved) Family History Mother Crohns disease Sister Crohns disease Grandmother Lung cancer Grandfather Colon cancer Social History Smoking Status: Never smoker alcohol intake: never substance use type: does not use caffeine: Yes what type of physical activity do you participate in: walking frequency: 3-4 times per week seatbelt use: always do you feel safe at home: Yes additional 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 States TERRAZZO MECHANIC in [place] in last year saw her and did labs that were normal. She tried 2 different oral contraceptives for dysmenorrhea but made her irritable. She has not been using OCP X about 5 momths. No contraception and ok. Her menses are regular each month lasting 3-5 days but cramping is significant and sometimes interrupts daily activities. She takes tylenol only for cramping. Female Reproductive History Last Menstral Period: 06/22/18 Questions: Metorrhagia: No, Sexually active: Yes, Dyspareunia: No, PCB: No Pregancy History 0 Elective abortions Hx Para Spontaneous abortions ROS Const Constitutional: Reports system reviewed and no additional complaints, except as docu GI GI: Denies abdominal pain or change in bowel habits Exam Const General: no acute distress Nutritional Appearance: well nourished Orientation: oriented x3 Assessment AND Plan Problems 1. Dysmenorrhea N94.6 2. Hair loss L65.9 Plan Encouraged use of Aleve 2 tabs with onset of menses and then 1 every 12 hours 2-3 days for cramping. Encourage vitamin and biotin daily which may help with thinning hair but encouraged to see refrigerator cabinetmaker if progresses. She denies any actual areas with complete hair loss Discussed optimal times for conception Records release for [place] TERRAZZO MECHANIC 20 min FTF counseling with patient. Coding Level of Care Code Off vis,est,level 3 Diagnoses Dysmenorrhea N94.6 Hair loss L65.9 06/25/18 2367 <Electronically signed by Sheyla HARRINGTON> Date Sheyla HARRINGTON Cosigner Signature: Date (if applicable) CC: ALLERGIES ALLERGIES DATE TYPE / CODE NAME / CODE REACTION SEVERITY SOURCE 12/10/2018 Drug Penicillins/ Rash [place] [facility] Allergy/4160 [id number]( Hospital [address](SNOMED XNORM) Repository CT) ENCOUNTERS ENCOUNTERS ADMIT/DISCHARGE ACCOUNT ADMITTING ENCOUNTER LOCATION SOURCE NUMBER CLASS 12/10/2018/ [id number] Ambulatory BMSBuilding:B [place] 9 6 [place].[facility] Repository 12/10/2018/ [id number] Ambulatory BMSBuilding:B [place] 9 6 [place].[facility] Repository 11/12/2018/ [id number] Ambulatory BMSBuilding:B [place] 8 4 [place] Repository 11/05/2018 [id number] Ambulatory [place] 5 [facility] ing:OPUS Repository 10/15/2018/ [id number] Ambulatory BMSBuilding:B [place] 8 1 [place] Repository 09/18/2018/ [id number] Ambulatory BMSBuilding:B [place] 8 5 [place] Repository 09/10/2018/ [id number] Ambulatory BMSBuilding:B [place] 8 6 [place] Repository 08/20/2018 [id number] Ambulatory [place] 7 [facility] ing:LAB Repository 08/20/2018/ [id number] Ambulatory BMSBuilding:B [place] 8 3 [place] Repository 06/25/2018/ [id number] Ambulatory BMSBuilding:B [place] 8 9 [place] Repository PAYERS PAYERS ENCOUNTER GUARANTOR PAYER SUBSCRIBER SOURCE 12/10/2018 ANGELIQUE L Primary ANGELIQUE L [place] [id number] CR Insurance:MEDICAL GOONDOB: [address] [id number] Hospital [address]Krd: (419) Number: Repository [phone] () [id number] Date:[id number] [address] [place] [address]WP: 12/10/2018 Secondary ANGELIQUE L [place] [facility]: [facility] [id number] Hospital Number: Repository [id number] Date:[id number] [address] [address]AP: 12/10/2018 Tertiary NOT GIVENUNK [place] Insurance:SELF PAY [facility] Hospital Number: Effective Repository Date:2018-12-10 12/10/2018 ANGELIQUE L Primary ANGELIQUE L [place] [id number] CR Insurance:MEDICAL GOONDOB: [address] [id number] Hospital [address]Rej: (419) Number: Repository [phone] () [id number] Date:[id number] [address] [address]ZX: 12/10/2018 Secondary ANGELIQUE L [place] [facility]: [facility] [id number] Hospital Number: Repository [id number] Date:[id number] [address] [address]LC: 12/10/2018 Tertiary NOT GIVENUNK [place] Insurance:SELF PAY [facility] Hospital Number: Effective Repository Date:2018-12-10 11/12/2018 ANGELIQUE L Primary ANGELIQUE L [place] [id number] CR Insurance:MEDICAL GOONDOB: [address] [id number] [id number]: [phone]) Number: Repository [phone] () [id number] Date:[id number] [address] [address]SP: 11/12/2018 Secondary ANGELIQUE L [place] Insurance:[facility]: [facility] [id number] Hospital Number: Repository [id number] Date:[id number] [address] [address]PO: 11/12/2018 Tertiary NOT GIVENUNK [place] Insurance:SELF PAY [facility] Hospital Number: Effective Repository Date:2018-11-12 11/05/2018 ANGELIQUE L Primary ANGELIQUE L [place] [id number] CR Insurance:MEDICAL GOONDOB: [address] [id number] [address]Teh: [phone] Number: Repository [phone] () [id number] Date:5602-12-64TJ [place] [address]WP: 11/05/2018 Secondary ANGELIQUE L [place] Insurance:[facility] GOONDOB: [facility] [id number] [facility] Number: Repository [id number] Date:[id number] [address]WX: 11/05/2018 Tertiary NOT GIVENUNK Alex Insurance:SELF PAY [facility] Number: Effective Repository Date:2018-10-15 10/15/2018 ANGELIQUE L Primary ANGELIQUE L [place] [id number] CR Insurance:MEDICAL GOONDOB: [address] [id number] Hospital [address]Vmm: [phone] Number: Repository [phone] () [id number] Date:[id number] [address]TQ: 10/15/2018 Secondary ANGELIQUE L [place] Insurance:[facility] GOONDOB: [facility] [id number] Hospital Number: Repository [id number] Date:0509-24-85DX [address] [address]MD: 10/15/2018 Tertiary NOT GIVENUNK Alex Insurance:SELF PAY [facility] Number: Effective Repository Date:2018-10-15 09/18/2018 ANGELIQUE L Primary ANGELIQUE L [place] [id number] CR Insurance:MEDICAL GOONDOB: [address] [id number] [address]Lqd: [phone] Number: Repository [phone] () [id number] Date:4977-83-69CE [address] [address]KP: 09/18/2018 Secondary NOT GIVENUNK [place] Insurance:SELF PAY [facility] Number: Effective Repository Date:2018-09-18 09/10/2018 ANGELIQUE L Primary ANGELIQUE L [place] [id number] CR Insurance:MEDICAL GOONDOB: [address] [id number] [id number]: [phone] Number: Repository [phone] () [id number] Date:7190-60-92LY [address] [address]SK: 09/10/2018 Secondary NOT GIVENUNK [place] Insurance:SELF PAY [facility] Number: Effective Repository Date:2018-09-10 08/20/2018 ANGELIQUE L Primary ANGELIQUE L [place] [id number] CR Insurance:MEDICAL GOONDOB: [address] [id number] [id number]: [phone] Number: Repository [phone] () [id number] Date:2413-90-55KZ [address] [address]MG: 08/20/2018 Secondary ANGELIQUE L [place] Insurance:[facility] GOONDOB: [facility] [id number] Hospital Number: Repository [id number] Date:7031-34-12AH [facility] [id number], [place] [address]ZB: 08/20/2018 Tertiary NOT GIVENUNK [place] Insurance:SELF PAY [facility] Number: Effective Repository Date:2018-08-20 08/20/2018 ANGELIQUE L Primary ANGELIQUE L [place] [id number] Insurance:MEDICAL GOONDOB: [address] [id number] [id number]: [phone] Number: Repository [phone] () [id number] Date:0729-81-20EW [address] [place] [address]EB: 08/20/2018 Secondary NOT GIVENUNK [place] Insurance:SELF PAY [facility] Number: Effective Repository Date:2018-08-20 06/25/2018 ANGELIQUE L Primary ANGELIQUE [place] Alex [id number] Insurance:MEDICAL GOONDOB: [address] [id number] [address]Cvh: [phone]) Number: Repository [phone] () [id number] Date:3884-84-48XP [address] [place] [address]JB: 06/25/2018 Secondary NOT GIVENUNK [place] Insurance:SELF PAY [facility] Number: Effective Repository Date:2018-06-25
== END ==
PROVIDERS: Visit Provider Nurse Practitioner Women's Health
DX: Z34.92 Encounter for supervision of normal pregnancy, unspecified, second trimester (principal)
CPT/HCPCS: 76805

== ENCOUNTER 2019-01-06 16:39 | Outpatient (CLI) | payer MEDICAID, SELFPAY ==
[2018-12-10 13:44] VITALS: BMI 25.1
[2019-01-06 18:58] LABS: Mucous, Urine 0 SEEN /hpf (<or=2+); Red Blood Cells-Urine 0 SEEN /hpf (0-5); White Blood Cells 0 SEEN /hpf (0-5)
[2019-01-06 19:00] LABS: Color, Urine Yellow (Yellow); Glucose, Dipstick Normal (Normal); Ketone-Dipstick Negative (Negative); Leukocyte Esterase-Dipstick Negative /ul (Negative); Nitrite-Dipstick Negative (Negative); Occult Blood-Urine Negative /ul (Negative); Protein-Dipstick Negative (Negative); Urine Bilirubin Dipstick Negative (Negative); Urine Clarity Clear (Clear); Urine Urobilinogen Normal (Normal)
[2019-01-06 19:07] LABS: Bacteria RARE /hpf (None Seen); Squamous Epithelial Cells - UA 0-5 SEEN /hpf (5-10)
[2019-01-06 19:15] VITALS: BMI 28.3
--- NOTE | 2019-01-06 19:49 | OB.TRI.NOTE ---
- Problem List (1) Threatened labor Status: Acute History of Present Illness Date of Service: 01/06/19 Was patient seen by the physician?: No Reason For Visit: R/O LABOR History of Present Illness: threatened labor Allergies Penicillins Allergy (Mild, Verified 12/10/18 13:42) rash - Pertinent Past Medical History Medical History: Past Medical History (Last Reviewed 12/10/18 @ 13:44 by Briseida Fraser) diarrhea lasting a week Laboratory Studies: Laboratory Tests 01/06/19 Range/Units 18:45 Urine Color Yellow (Yellow) Urine Clarity Clear (Clear) Urine pH 7.0 (5.0 - 8.0) Ur Specific [place] 1.010 (1.002-1.030) Urine Protein Negative (Negative) mg/dl Urine Glucose (UA) Normal (Normal) mg/dl Urine Ketones Negative (Negative) mg/dl Urine Occult Blood Negative (Negative) /ul Urine Nitrite Negative (Negative) Urine Bilirubin Negative (Negative) mg/dL Urine Urobilinogen Normal (Normal) mg/dl Ur Leukocyte Esterase Negative (Negative) /ul Urine RBC 0 SEEN (0-5) /hpf Urine WBC 0 SEEN (0-5) /hpf Ur Squamous Epith Cells 0-5 SEEN (5-10) /hpf Urine Bacteria RARE (None Seen) /hpf Urine Mucus 0 SEEN (<or=2+) /hpf NST - FHR Rate Baby A Baseline: 150 Variability:: Moderate Accelerations:: 10 x 10 Decelerations:: None NST Reactive:: Yes FHR Category:: Category I Uterine Activity:: irritability Impression/Plan threatened labor- no cervical change
== END 2019-01-06 19:40 | disposition home or self-care (01) ==
LOC: WPOUT 16:41 → WP 16:42
PROVIDERS: Referring Provider Obstetrics & Gynecology; Visit Provider Obstetrics & Gynecology
DX: O60.00 Preterm labor without delivery, unspecified trimester (principal); Z3A.00 Weeks of gestation of pregnancy not specified
CPT/HCPCS: 59050; 81001; 87086; 87088; 99218; G0378

== ENCOUNTER → 2019-01-09 13:59 | Outpatient (CLI) | payer OTHER, MEDICAID, SELFPAY ==
[2019-01-09 13:22] VITALS: BMI 28.3
[2019-01-09 14:35] LABS: Absolute Lymphocyte Count 1.34 X10^3/ul (0.83-4.51); Absolute Neutrophil Count 6.8 X10^3/uL (2.0-7.7); Basophil# 0.02 X10^3/uL; Basophil% 0.2 % (0-1); Eosinophil# 0.33 X10^3/uL; Eosinophils% 3.6 % (0-5); Hematocrit 39.3 % (37-47); Hemoglobin 13.1 g/dl (12.0-15.0); Lymphocyte # 1.34 X10^3/ul (4.0); Lymphocyte % 14.5 % (19-41); Mean Corp Hgb Conc 33.3 g/gl (32-36); Mean Corpuscular Hgb 31.1 pg (27.0-32.0); Mean Corpuscular Volume 93.3 fL (81-99); Mean Platelet Vol. 9.1 fl (6.2-12.0); Monocyte# 0.76 X10^3/uL; Monocyte% 8.2 % (0-10); Neutrophil # 6.77 X10^3/uL (2.7-7.7); Neutrophil % 73.1 % (47-70); Platelet Count 269 K/mm3 (150-450); Red Blood Count 4.21 M/mm3 (4.2-5.4); White Blood Count 9.3 K/mm3 (4.4-11.0)
[2019-01-09 14:37] LABS: POSITIVE COUNT NO; POSITIVE DIFFERENTIAL NO; POSITIVE MORPHOLOGY NO
[2019-01-09 14:57] LABS: Glucose Challenge Gest 1H 50g 113 mg/dL (70-140)
== END ==
PROVIDERS: Referring Provider Obstetrics & Gynecology; Visit Provider Obstetrics & Gynecology
DX: Z34.00 Encounter for supervision of normal first pregnancy, unspecified trimester (principal)
CPT/HCPCS: 36415; 82950; 85025

== ENCOUNTER 2019-02-17 14:35 | Outpatient (CLI) | payer MEDICAID, SELFPAY ==
[2019-02-06 12:58] VITALS: BMI 28.3
[2019-02-17 15:51] VITALS: BMI 29.7
[2019-02-17 16:30] LABS: Protein, Urine (Random) 16.7 mg/dL (<11.9); Protein:Creat Ratio 479 mg/g CRE (0-200)
[2019-02-17 18:08] LABS: Hemoglobin 15.3 g/dl (12.0-15.0); Mean Corp Hgb Conc 33.3 g/gl (32-36); Mean Corpuscular Volume 93.1 fL (81-99); Mean Platelet Vol. 9.9 fl (6.2-12.0); Platelet Count 283 K/mm3 (150-450); RBC Distribution Width CV 13.4 % (11.6-14.6); RBC Distribution Width SD 43.9 fl (35.1-43.9); Red Blood Count 4.94 M/mm3 (4.2-5.4); White Blood Count 9.5 K/mm3 (4.4-11.0)
[2019-02-17 18:20] LABS: Scan Indicated on CBC? Y/N NO
[2019-02-17 19:23] LABS: ALB/GLOB Ratio 0.8 RATIO (0.9-2.4); AST(SGOT) 19 U/L (15-37); Alanine Aminotransfer ALT/SGPT 21 U/L (13-56); Albumin, Serum 3.5 g/dL (3.2-5.0); Alkaline Phosphatase 177 U/L (45-117); Anion Gap 7 (5-15); BUN 3 mg/dL (7-18); BUN/Creat Ratio 4.6 RATIO (10-20); Calcium,Total 8.8 mg/dL (8.5-10.1); Chloride 106 mmol/L (98-107); Creatinine, Serum 0.66 mg/dL (0.55-1.02); EST Glomerular Filtration Rate 119 mL/min (>60); Est Glom Filt Rate - Afr Amer 144 mL/min (>60); Estimated Creatinine Clearance 100.89 ml/min; Globulin 4.5 g/dL (2.2-4.2); Glucose 64 mg/dL (74-106); Potassium 3.6 mmol/L (3.5-5.1); Sodium Level 137 mmol/L (136-145)
--- NOTE | 2019-02-17 21:08 | OB.TRI.PN_ITS ---
Progress Notes Date of Service: 02/17/19 Progress Note: Patient presented with headache and borderline elevated blood pressure. Patient declined Tylenol stating the headache was that significant. Blood pressures were all normal upon evaluation. heart tones 140s moderate variability reactive no decelerations category 1 tracing [place] no regular contractions Urine protein creatinine ratio over 400 Assessment and plan Proteinuria recommend 24-hour urine and urine culture sent check blood pressures and follow-up in the outpatient Laboratory Studies: Laboratory Tests 02/17/19 02/17/19 02/17/19 Range/Units 17:15 17:15 15:55 WBC 9.5 (4.4-11.0) K/mm3 RBC 4.94 (4.2-5.4) M/mm3 Hgb 15.3 H (12.0-15.0) g/dl Hct 46.0 (37-47) % MCV 93.1 (81-99) fL MCH 31.0 (27.0-32.0) pg MCHC 33.3 (32-36) g/gl RDW 13.4 (11.6-14.6) % RDW Differential 43.9 (35.1-43.9) fl Plt Count 283 (150-450) K/mm3 MPV 9.9 (6.2-12.0) fl Sodium 137 (136-145) mmol/L Potassium 3.6 (3.5-5.1) mmol/L Chloride 106 (98-107) mmol/L Carbon Dioxide 24.0 (21.0-32.0) mmol/L Anion Gap 7 (5-15) BUN 3 L (7-18) mg/dL Creatinine 0.66 (0.55-1.02) mg/dL Estim Creat Clear Calc 100.89 ml/min Est GFR (MDRD) Af Amer 144 (>60) mL/min Est GFR (MDRD) Non-Af 119 (>60) mL/min BUN/Creatinine Ratio 4.6 L (10-20) RATIO Glucose 64 L (74-106) mg/dL Calcium 8.8 (8.5-10.1) mg/dL Total Bilirubin 0.30 (0.20-1.00) mg/dL AST 19 (15-37) U/L ALT 21 (13-56) U/L Alkaline Phosphatase 177 H (45-117) U/L Total Protein 8.0 (6.4-8.2) g/dL Albumin 3.5 (3.2-5.0) g/dL Globulin 4.5 H (2.2-4.2) g/dL Albumin/Globulin Ratio 0.8 L (0.9-2.4) RATIO U Random Total Protein 16.7 H (<11.9) mg/dL Urine Creatinine 34.90 (NO RANGE EST.) mg/dL Protein/Creatinin Ratio 479 H (0-200) mg/g CRE
== END 2019-02-17 17:30 | disposition home or self-care (01) ==
LOC: WPOUT 14:42 → WP 14:43
PROVIDERS: Referring Provider Obstetrics & Gynecology; Visit Provider Obstetrics & Gynecology
DX: O12.10 Gestational proteinuria, unspecified trimester (principal); Z3A.00 Weeks of gestation of pregnancy not specified
CPT/HCPCS: 59050; 80053; 82570; 84156; 85027; 87086; 87088; 99218; G0378

== ENCOUNTER → 2019-02-19 15:01 | Outpatient (CLI) | payer MEDICAID, SELFPAY ==
[2019-02-18 13:34] VITALS: BMI 29.7
[2019-02-19 16:32] LABS: 24 Hour Urine Protein 148.2 mg/24HR (<150 MG/24HR); 24HR. UA Prot. Total Volume 1900 mL; Urine Protein (24 Hour) 7.8 mg/dL (<11.9)
[2019-02-19 16:33] LABS: Creat.Clear Total Volume 1900 mL; Creatinine Clearance 142 ml/min (100-200); Creatinine Serum Creat 0.7 mg/dL (0.6-1.0); Creatinine Urine 70.9 mg/dL (NO RANGE EST.); EST Glomerular Filtration Rate 119 mL/min (>60); Est Glom Filt Rate - Afr Amer 144 mL/min (>60)
== END ==
PROVIDERS: Referring Provider Obstetrics & Gynecology; Visit Provider Obstetrics & Gynecology
DX: O12.10 Gestational proteinuria, unspecified trimester (principal); Z3A.00 Weeks of gestation of pregnancy not specified
CPT/HCPCS: 82575; 84156

== ENCOUNTER → 2019-03-03 | Outpatient (CLI) | payer MEDICAID, SELFPAY | END | disposition home or self-care (01) | PROVIDERS: Referring Provider Obstetrics & Gynecology; Visit Provider Obstetrics & Gynecology | DX: Z34.90 Encounter for supervision of normal pregnancy, unspecified, unspecified trimester (principal) | CPT/HCPCS: 87081 ==

== ENCOUNTER 2019-03-18 11:10 | Outpatient (CLI) | payer MEDICAID, SELFPAY ==
[2019-03-18 11:31] VITALS: BMI 30.9
[2019-03-18 12:09] LABS: ROM Internal Control Test YES-OK TO RESULT pt. (Internal QC); ROM Patient Test Negative (Negative); Record Kit Lot#, ROM+ J7836
--- NOTE | 2019-03-20 19:40 | OB.TRI.PN_ITS ---
Progress Notes Date of Service: 03/18/19 Progress Note: Patient presented with contractions heart tones 130s moderate variability reactive no decelerations [place]: Irregular contractions negative ROM plus Assessment and plan false labor no cervical change and negative for rupture membranes reactive NST DC home labor precautions Laboratory Studies: Laboratory Tests 03/18/19 Range/Units 11:23 Vag Amniotic Fld Detect Negative (Negative)
== END 2019-03-18 12:30 | disposition home or self-care (01) ==
LOC: WPOUT 11:29 → WP 11:30
PROVIDERS: Referring Provider Obstetrics & Gynecology; Visit Provider Obstetrics & Gynecology
DX: O47.9 False labor, unspecified (principal); Z3A.00 Weeks of gestation of pregnancy not specified
CPT/HCPCS: 59025; 59050; 84112; 99218; G0378

== ENCOUNTER 2019-03-30 17:40 | Inpatient (IN) | payer MEDICAID, SELFPAY ==
[2019-03-25 11:40] VITALS: BMI 30.9
[2019-03-30 11:29] VITALS: BMI 31.1
[2019-03-30] MEDS: Lactated Ringers 1,000 ML 50 ML IV ×2 (18:00→21:47)
[2019-03-30 18:30] LABS: Absolute Lymphocyte Count 1.67 X10^3/ul (0.83-4.51); Absolute Neutrophil Count 6.7 X10^3/uL (2.0-7.7); Basophil# 0.01 X10^3/uL; Basophil% 0.1 % (0-1); Eosinophil# 0.17 X10^3/uL; Eosinophils% 1.8 % (0-5); Hematocrit 41.6 % (37-47); Hemoglobin 14.2 g/dl (12.0-15.0); Lymphocyte # 1.67 X10^3/ul (4.0); Lymphocyte % 17.8 % (19-41); Mean Corp Hgb Conc 34.1 g/gl (32-36); Mean Corpuscular Hgb 31.3 pg (27.0-32.0); Mean Corpuscular Volume 91.6 fL (81-99); Mean Platelet Vol. 10.4 fl (6.2-12.0); Monocyte# 0.79 X10^3/uL; Monocyte% 8.4 % (0-10); Neutrophil % 71.7 % (47-70); Platelet Count 246 K/mm3 (150-450); RBC Distribution Width CV 13.4 % (11.6-14.6); RBC Distribution Width SD 44.2 fl (35.1-43.9); Red Blood Count 4.54 M/mm3 (4.2-5.4); White Blood Count 9.4 K/mm3 (4.4-11.0)
[2019-03-30 18:31] LABS: POSITIVE COUNT NO; POSITIVE DIFFERENTIAL NO; POSITIVE MORPHOLOGY NO
[2019-03-30 18:46] LABS: ROM Internal Control Test YES-OK TO RESULT pt. (Internal QC); ROM Patient Test Negative (Negative)
[2019-03-30] MEDS: fentaNYL-bupivacaine (epidural) 100 ML BAG EPIDURAL (21:47)
[2019-03-31] MEDS: Lactated Ringers 1,000 ML 50 ML IV ×2 (02:08→06:41)
[2019-03-31] MEDS: 0.9% Saline Lock 10 ML Syringe IV ×2 (02:15→11:02)
[2019-03-31] MEDS: Ondansetron 4 MG/2 ML Vial IV (02:15)
[2019-03-31] MEDS: fentaNYL-bupivacaine (epidural) 100 ML BAG EPIDURAL ×2 (03:12→09:06)
--- NOTE | 2019-03-31 03:31 | PCM.HP.OB ---
- Problem List (1) Active labor at term Status: Acute (2) ASCUS (atypical squamous cells of undetermined significance) on gynecologic Papanicolaou smear complicating , antepartum Status: Acute Comment: ASCUS PAP - HPV Repeat in one year. (3) Status: Acute Qualifiers: Comment: genetic, carrier, and NTD screening declined. anatomy scan reviewed (4) Supervision of normal first Status: Acute Qualifiers: Comment: PRR MELVIN 03/30/19 girl Rafa Walter History Date of Admission: 03/30/19 Final MELVIN: 03/30/19 Gestational age: 40 Weeks and 1 Days History of this : This is a 24 year-old, G 1P0 at 40 weeks gestational age presents in active labor at term. Patient presents at 5 cm. She denies any vaginal bleeding admits loss of fluid but had a negative ROM plus. She has had an uncomplicated . Medical History: Medical History (Last Reviewed 03/25/19 @ 11:40 by Kaela Lorenzana) diarrhea lasting a week Allergies Penicillins Allergy (Mild, Verified 03/25/19 11:40) rash Home Medications: Home Medications vitamin,calcium,mfjcxqve-sjpc-ehxne acid tablet 1 tab PO DAILY 08/20/18 Smoking Status: Never smoker Number of Fetus(es): 1 Heart Tracin moderate variability reactive no decelerations category I tracing [place]: regular History Past Pregnancies: Past Pregnancies Delivery Date Name GA/Weeks Outcome Route Weight Infant Gender Labor Length Anesthesia Delivery Location Provider FOB Labs: Mom[facility] Labs & Results 03/30/19 03/30/19 03/30/19 17:45 18:00 18:00 WBC 9.4 RBC 4.54 Hgb 14.2 Hct 41.6 MCV 91.6 MCH 31.3 MCHC 34.1 RDW 13.4 RDW Differential 44.2 H Plt Count 246 MPV 10.4 Immature Gran % (Auto) 0.200 Neut % (Auto) 71.7 H Lymph % (Auto) 17.8 L [place] % (Auto) 8.4 Eos % (Auto) 1.8 Baso % (Auto) 0.1 Absolute Neuts (auto) 6.7 Absolute Lymphs (auto) 1.67 Total Counted Not Reportable Vag Amniotic Fld Detect Negative Blood Type B POSITIVE Antibody Screen NEGATIVE Course Did the patient receive Yes care? Labs Blood Type: B RH: POSITIVE RPR/VDRL/Syphilis Nonreactive Rubella status Immune HbSAg Negative Date Done: 08/20/18 Chlamydia Negative Gonorrhea Negative HIV/AIDS Non-Reactive Group B Strep: Negative Current Obstetrical History Gestational Diabetes No Incompetent Cervix No Infertility No IUGR No Macrosomia No Hypertension/Pre-eclampsia No Placenta Previa/Abruption No PTL/PROM No Uterine anomaly No Oligohydramnios No Polyhydramnios No Multiple gestation No Past Medical History Asthma No Diabetes No Hypertension No Heart disease No Mitral valve prolapse No Neurologic/Seizure disorder/ No Migraines Kidney disease No Liver disease No Varicosities No Clotting disorders/Hx of DVT No Thyroid Dysfunction No Other medical diseases No Psychiatric disorders No Major trauma No Abnormal PAP smear No Sleep apnea No Mammogram in the last 2 years No Enter DETAILS of medical Chrones disease history Social History Marital Status: SINGLE Alleged father Jose Angel August Hx Smoking No Smoking Status Never smoker Expected Infant Delivery Method: Spontaneous Vaginal Review of Systems Constitutional: Denies: Fever, Malaise Eyes: Denies: Blurred vision, Vision Change HEENT: Denies: Head Aches, Visual Changes Cardiovascular: Denies: Chest Pain, Palpitations Respiratory: Denies: Cough, Shortness of Breath, Wheezing Gastrointestinal: Denies: Abdominal Pain, Diarrhea, Nausea, Vomiting Genitourinary: Denies: Dysuria, Hematuria Musculoskeletal: Denies: Joint Pain, Muscle pain Skin: Denies: Lesions, Rash Neurological: Denies: Blurred vision, Focal weakness, Headaches Psychiatric: Denies: Anxiety, Depression Endocrine: Denies: Heat/ Cold Intolerance Hematologic/ Lymphatic: Denies: Easy Bruising, Easy Bleeding Physical Exam General: Alert, Cooperative, No apparent distress HEENT: Atraumatic, Normocephalic. Negative for: Thyromegaly, Lymphadenopathy Cardiovascular: Regular rate Lungs: Normal air movement Abdomen: Soft, Non Tender, Gravid Neurological: Deep Tendon Reflexes 2+/4 and Symmetrical, Neuro grossly intact. Negative for: Clonus P[employer]CE: Normal external genitalia. Negative for: Vulvar lesions Estimated gestational size: Appropriate for gestational size Presentation: Cephalic Assessment/Plan All Active Problems (Last Reviewed 03/25/19 @ 11:40 by Kaela Lorenzana) Active labor at term (Acute) Sinusitis (Acute) ASCUS (atypical squamous cells of undetermined significance) on gynecologic Papanicolaou smear complicating , antepartum (Acute) (Acute) Supervision of normal first (Acute) Proteinuria affecting in third trimester (Resolved) Segmental and somatic dysfunction of thoracic region (Resolved) Thoracic neuritis (Resolved) Threatened labor (Resolved) This is a 24 year-old, G1, P0 at 40 weeks gestational age presents in active labor. Patient presents IAL, plan expectant management for , pitocin PRN, arom clear fluid. Pain management: Prefers minimal intervention, epidural if desired. GBS negative. Management of any complications: None I have reviewed the [facility] and made any clinically relevant updates.
--- NOTE | 2019-03-31 03:34 | HP.PCM_ITS ---
- Problem List (1) Active labor at term Status: Acute (2) ASCUS (atypical squamous cells of undetermined significance) on gynecologic Papanicolaou smear complicating , antepartum Status: Acute Comment: ASCUS PAP - HPV Repeat in one year. (3) Status: Acute Qualifiers: Comment: genetic, carrier, and NTD screening declined. anatomy scan reviewed (4) Supervision of normal first Status: Acute Qualifiers: Comment: PRR MELVIN 03/30/19 girl Rafa Walter History Date of Admission: 03/30/19 Final MELVIN: 03/30/19 Gestational age: 40 Weeks and 1 Days History of this : This is a 24 year-old, G 1P0 at 40 weeks gestational age presents in active labor at term. Patient presents at 5 cm. She denies any vaginal bleeding admits loss of fluid but had a negative ROM plus. She has had an uncomplicated . Medical History: Medical History (Last Reviewed 03/25/19 @ 11:40 by Kaela Lorenzana) diarrhea lasting a week Allergies Penicillins Allergy (Mild, Verified 03/25/19 11:40) rash Home Medications: Home Medications vitamin,calcium,zvmsnnpt-gtyl-uzguv acid tablet 1 tab PO DAILY 08/20/18 Smoking Status: Never smoker Number of Fetus(es): 1 Heart Tracin moderate variability reactive no decelerations category I tracing [place]: regular History Past Pregnancies: Past Pregnancies Delivery Date Name GA/Weeks Outcome Route Weight Infant Gender Labor Length Anesthesia Delivery Location Provider FOB Labs: Mom's Labs & Results 03/30/19 03/30/19 03/30/19 17:45 18:00 18:00 WBC 9.4 RBC 4.54 Hgb 14.2 Hct 41.6 MCV 91.6 MCH 31.3 MCHC 34.1 RDW 13.4 RDW Differential 44.2 H Plt Count 246 MPV 10.4 Immature Gran % (Auto) 0.200 Neut % (Auto) 71.7 H Lymph % (Auto) 17.8 L [place] % (Auto) 8.4 Eos % (Auto) 1.8 Baso % (Auto) 0.1 Absolute Neuts (auto) 6.7 Absolute Lymphs (auto) 1.67 Total Counted Not Reportable Vag Amniotic Fld Detect Negative Blood Type B POSITIVE Antibody Screen NEGATIVE Course Did the patient receive Yes care? Labs Blood Type: B RH: POSITIVE RPR/VDRL/Syphilis Nonreactive Rubella status Immune HbSAg Negative Date Done: 08/20/18 Chlamydia Negative Gonorrhea Negative HIV/AIDS Non-Reactive Group B Strep: Negative Current Obstetrical History Gestational Diabetes No Incompetent Cervix No Infertility No IUGR No Macrosomia No Hypertension/Pre-eclampsia No Placenta Previa/Abruption No PTL/PROM No Uterine anomaly No Oligohydramnios No Polyhydramnios No Multiple gestation No Past Medical History Asthma No Diabetes No Hypertension No Heart disease No Mitral valve prolapse No Neurologic/Seizure disorder/ No Migraines Kidney disease No Liver disease No Varicosities No Clotting disorders/Hx of DVT No Thyroid Dysfunction No Other medical diseases No Psychiatric disorders No Major trauma No Abnormal PAP smear No Sleep apnea No Mammogram in the last 2 years No Enter DETAILS of medical Chrones disease history Social History Marital Status: SINGLE Alleged father Jose Angel August Hx Smoking No Smoking Status Never smoker Expected Infant Delivery Method: Spontaneous Vaginal Review of Systems Constitutional: Denies: Fever, Malaise Eyes: Denies: Blurred vision, Vision Change HEENT: Denies: Head Aches, Visual Changes Cardiovascular: Denies: Chest Pain, Palpitations Respiratory: Denies: Cough, Shortness of Breath, Wheezing Gastrointestinal: Denies: Abdominal Pain, Diarrhea, Nausea, Vomiting Genitourinary: Denies: Dysuria, Hematuria Musculoskeletal: Denies: Joint Pain, Muscle pain Skin: Denies: Lesions, Rash Neurological: Denies: Blurred vision, Focal weakness, Headaches Psychiatric: Denies: Anxiety, Depression Endocrine: Denies: Heat/ Cold Intolerance Hematologic/ Lymphatic: Denies: Easy Bruising, Easy Bleeding Physical Exam General: Alert, Cooperative, No apparent distress HEENT: Atraumatic, Normocephalic. Negative for: Thyromegaly, Lymphadenopathy Cardiovascular: Regular rate Lungs: Normal air movement Abdomen: Soft, Non Tender, Gravid Neurological: Deep Tendon Reflexes 2+/4 and Symmetrical, Neuro grossly intact. Negative for: Clonus C[employer]TER [employer]: Normal external genitalia. Negative for: Vulvar lesions Estimated gestational size: Appropriate for gestational size Presentation: Cephalic Assessment/Plan All Active Problems (Last Reviewed 03/25/19 @ 11:40 by Kaela Lorenzana) Active labor at term (Acute) Sinusitis (Acute) ASCUS (atypical squamous cells of undetermined significance) on gynecologic Papanicolaou smear complicating , antepartum (Acute) (Acute) Supervision of normal first (Acute) Proteinuria affecting in third trimester (Resolved) Segmental and somatic dysfunction of thoracic region (Resolved) Thoracic neuritis (Resolved) Threatened labor (Resolved) This is a 24 year-old, G1, P0 at 40 weeks gestational age presents in active labor. Patient presents IAL, plan expectant management for , pitocin PRN, arom clear fluid. Pain management: Prefers minimal intervention, epidural if desired. GBS negative. Management of any complications: None I have reviewed the [facility] and made any clinically relevant updates.
[2019-03-31] MEDS: Oxytocin 30 units/NS 500 ml 30 UNITS/500 ML IV.SOLN IV (05:00)
[2019-03-31] MEDS: Oxytocin 30 units/NS 500 ml 30 UNITS/500 ML IV.SOLN 334 UNITS IV (09:29)
--- NOTE | 2019-03-31 09:52 | OP.PCM_ITS ---
Problem List (1) Active labor at term Status: Acute (2) ASCUS (atypical squamous cells of undetermined significance) on gynecologic Papanicolaou smear complicating , antepartum Status: Acute Comment: ASCUS PAP - HPV Repeat in one year. (3) Status: Acute Qualifiers: Comment: genetic, carrier, and NTD screening declined. anatomy scan reviewed (4) Supervision of normal first Status: Acute Qualifiers: Comment: PRR MELVIN 03/30/19 giana Walter Report of Operation Date of Procedure: 04/01/19 Pre-Operative Diagnosis: ial Post-Operative Diagnosis: same Vaginal Delivery Maternal Presentation: Active Labor 40weeks IAL Amniotic Membrane Rupture Type: Artificial Amniotic Fluid Description: Clear Final MELVIN: 03/30/19 Gestational age: 40 Weeks and 2 Days Date of Procedure: 03/31/19 Pre-Operative Diagnosis: ial Post-Operative Diagnosis: same Surgery/ Procedure Performed: Spontaneous Vaginal Delivery Type of Anesthesia: Epidural, Pudendal block with 1% lidocaine Description of Procedure: Patient had epidural replaced twice with inadequate pain control and began pushing and due to lack of pain control dental block was placed after prepping the vagina with Betadine the bilateral ischial spines were identified and 2 cm medial and posterior 10 cc bilaterally 1% lidocaine where it was injected without difficulty using an [place] trumpet. Patient began pushing and delivered the head in the JOSEPH presentation. The head was delivered atraumatically and a nuchal cord was noted but the infant was delivered through it. The anterior and posterior shoulders delivered without complication followed by the rest of the and the infant was placed on the maternal abdomen. Delayed cord clamping was employed for approximately 60 seconds. Cord was clamped and cut and gentle traction was applied to the cord and the placenta delivered spontaneously immediately following it was noted to be intact with three-vessel cord. The perineum and vagina were inspected and noted to have a right vaginal laceration that was repaired in the usual fashion with 3-0 Vicryl Rapide. EBL was 300 cc. Patient and infant tolerated delivery well. Presentation: JOSEPH Placental Delivery Description: Spontaneous Placenta Disposition: [facility] Cord Vessel Description: 3 Vessels Cord Entanglement: Around neck x 1, loose Estimated Blood Loss: 300 A gender: Female Episiotomy Description: None Laceration: Vaginal Extension/lac, 1st degree Medications given after delivery: IV Pitocin Complications: None
[2019-03-31] MEDS: Oxytocin 30 units/NS 500 ml 30 UNITS/500 ML IV.SOLN 167 UNITS IV (09:59)
[2019-03-31] MEDS: Acetaminophen 325 MG Tablet PO (11:29)
[2019-03-31 15:59] VITALS: BP 125/81; PULSE 110; RESP 16; TEMP 37.1; O2SAT 98
[2019-03-31 20:10] VITALS: BP 119/83; PULSE 114; RESP 20; TEMP 36.4; O2SAT 97
[2019-03-31] MEDS: Naproxen 250 MG Tablet 500 MG PO (20:21)
[2019-03-31 23:40] VITALS: BP 122/83; PULSE 108; RESP 18; TEMP 36.6
[2019-04-01 03:15] VITALS: BP 117/66; PULSE 93; RESP 18; TEMP 36.3; O2SAT 97
[2019-04-01 06:00] VITALS: BP 117/75; PULSE 75; RESP 16; TEMP 36.7; O2SAT 99
--- NOTE | 2019-04-01 07:56 | PCM.PN.OB ---
Patient Problems: Active and Suspected Problems (Last Reviewed 03/25/19 @ 11:40 by Kaela Lorenzana) Active labor at term (Acute) Subjective: doing well no complaints pain controlled no CP SOB N V ambulating well tolerating po lochia moderate, going well - Physical Exam General: Alert, Oriented x3 Abdomen: Soft, Non Tender, - - FF below U Vital Signs Temp Pulse Resp BP Pulse Ox 97.3 F L 93 18 117/66 97 04/01/19 03:15 04/01/19 03:15 04/01/19 03:15 04/01/19 03:15 04/01/19 03:15 Oxygen Delivery Method Room Air Weight: 165 lb Body Mass Index (BMI) 31.1 Intake and Output for Last 24 Hours 03/30/19 03/31/19 04/01/19 23:59 23:59 23:59 Intake Total 1424 / 1424 1155 / 1155 Output Total 200 / 200 2049 / 2049 Balance 1224 / 1224 -895 / -895 Medical Necessity - Tobacco Use Smoking Status: Never smoker Assessment/Plan All Active Problems (Last Reviewed 03/25/19 @ 11:40 by Kaela Lorenzana) Active labor at term (Acute) Sinusitis (Acute) ASCUS (atypical squamous cells of undetermined significance) on gynecologic Papanicolaou smear complicating , antepartum (Acute) (Acute) Supervision of normal first (Acute) Proteinuria affecting in third trimester (Resolved) Segmental and somatic dysfunction of thoracic region (Resolved) Thoracic neuritis (Resolved) Threatened labor (Resolved) s/p PPD # 1 1. routine post delivery care 2. breast feeding- support given 3. rh positive 4. rubella immune
[2019-04-01 14:00] VITALS: BP 116/66; PULSE 80; RESP 17; TEMP 36.6; O2SAT 99
[2019-04-01 19:43] VITALS: BP 127/81; PULSE 100; RESP 16; TEMP 37
[2019-04-02 00:55] VITALS: BP 125/86; PULSE 89; RESP 15; TEMP 36.4
--- NOTE | 2019-04-02 07:33 | PCM.PN.OB ---
Patient Problems: Active and Suspected Problems (Last Reviewed 03/25/19 @ 11:40 by Kaela Lorenzana) Active labor at term (Acute) Subjective: doing well no complaints pain controlled no CP SOB N V ambulating well tolerating po lochia moderate, going well - Physical Exam General: Alert, Oriented x3 Abdomen: Soft, Non Tender, - - FF below U Vital Signs Temp Pulse Resp BP Pulse Ox 97.5 F L 89 15 125/86 H 99 04/02/19 00:55 04/02/19 00:55 04/02/19 00:55 04/02/19 00:55 04/01/19 14:00 Oxygen Delivery Method Room Air Weight: 165 lb Body Mass Index (BMI) 31.1 Intake and Output for Last 24 Hours 03/31/19 04/01/19 04/02/19 23:59 23:59 23:59 Intake Total 1155 / 1155 Output Total 2049 / 2049 Balance -895 / -895 Medical Necessity - Tobacco Use Smoking Status: Never smoker Assessment/Plan All Active Problems (Last Reviewed 03/25/19 @ 11:40 by Kaela Lorenzana) Active labor at term (Acute) Sinusitis (Acute) ASCUS (atypical squamous cells of undetermined significance) on gynecologic Papanicolaou smear complicating , antepartum (Acute) (Acute) Supervision of normal first (Acute) Proteinuria affecting in third trimester (Resolved) Segmental and somatic dysfunction of thoracic region (Resolved) Thoracic neuritis (Resolved) Threatened labor (Resolved) s/p PPD # 2 1. routine post delivery care 2. breast feeding- support given 3. rh positive 4. rubella immune 5. Home today
--- NOTE | 2019-04-02 07:34 | DCINST_ITS ---
Additional Instructions: If you experience any of the following, contact your healthcare provider. * Bleeding that soaks a pad every hour for 2 hours * Fever 100.4 or higher * Unrelieved incision or abdominal pain * Swelling, redness, discharge or bleeding from your incision or episiotomy site * Your incision begins to separate * Problems urinating (including inability to urinate or burning while urinating). * Visual changes * Severe headache * Flu-like symptoms * Pain or redness in one of both of your breasts * Pain, warmth, tenderness or swelling in your legs, especially the calf area * Frequent nausea and vomiting * Symptoms of depression or anxiety If you experience any of the following, call 911 or go to the nearest Emergency Room. * Chest pain * Problems breathing * Seizure activity * Partial or complete paralysis of a body part, slurred speech, weakness or drooping of the face, or a sudden inability to walk or hold your balance Allergies/Adverse Reactions: Allergies Penicillins Allergy (Mild, Verified 03/25/19 11:40) rash Medications to take at Discharge vitamin,calcium,bffnbvoi-ofvm-qdhkx acid tablet 1 tab PO DAILY 08/20/18 Primary Care Physician: Care Physician,No Primary [Primary Care Provider] - Test Results: Test results from this visit will be discussed in further detail at your follow- up appointment, if applicable.
--- NOTE | 2019-04-02 07:34 | PCM.DCVAG ---
Additional Instructions: If you experience any of the following, contact your healthcare provider. Bleeding that soaks a pad every hour for 2 hours Fever 100.4 or higher Unrelieved incision or abdominal pain Swelling, redness, discharge or bleeding from your incision or episiotomy site Your incision begins to separate Problems urinating (including inability to urinate or burning while urinating). Visual changes Severe headache Flu-like symptoms Pain or redness in one of both of your breasts Pain, warmth, tenderness or swelling in your legs, especially the calf area Frequent nausea and vomiting Symptoms of depression or anxiety If you experience any of the following, call 911 or go to the nearest Emergency Room. Chest pain Problems breathing Seizure activity Partial or complete paralysis of a body part, slurred speech, weakness or drooping of the face, or a sudden inability to walk or hold your balance Allergies/Adverse Reactions: Allergies Penicillins Allergy (Mild, Verified 03/25/19 11:40) rash Medications to take at Discharge vitamin,calcium,qdnxoryo-gqpj-ihrko acid tablet 1 tab PO DAILY 08/20/18 Primary Care Physician: Care Physician,No Primary [Primary Care Provider] - Test Results: Test results from this visit will be discussed in further detail at your follow-up appointment, if applicable.
[2019-04-02 07:50] VITALS: BP 130/87; PULSE 97; RESP 14; TEMP 36.5
--- NOTE | 2019-04-02 08:51 | NURSING ---
0840-patient placed in car seat, patient to w/c and placed on patients lap. to private car in stable condition via w/c.
--- NOTE | 2019-04-07 19:08 | NURSING ---
Pumping , baby having some stomach upset, doing some formula with breastmilk. Satisfied with her care denies needs or questions at this time, outpatient resources reviewed.
== END 2019-04-02 08:40 | disposition home or self-care (01) | DRG 560 ==
LOC: WP 18:05
PROVIDERS: Admitting Provider Obstetrics & Gynecology; Referring Provider Obstetrics & Gynecology; Visit Provider Obstetrics & Gynecology
DX: O70.0 First degree perineal laceration during delivery (principal); O69.81X0 Labor and delivery complicated by cord around neck, without compression, not applicable or unspecified; O28.2 Abnormal cytological finding on antenatal screening of mother; Z3A.40 40 weeks gestation of pregnancy; Z37.0 Single live birth
CPT/HCPCS: 59025; 59050; 84112; 85025; 86850; 86900; 99218; J7120; A4216; G0378; J2405

== ENCOUNTER → 2020-05-12 15:57 | Outpatient (CLI) | payer MEDICAID, SELFPAY ==
[2020-05-12 11:07] VITALS: BMI 31.1
[2020-05-17 16:34] LABS: HPV Reflexed? NOT INDICATED
== END ==
PROVIDERS: PCP Internal Medicine; Referring Provider Obstetrics & Gynecology; Visit Provider Obstetrics & Gynecology
DX: Z12.4 Encounter for screening for malignant neoplasm of cervix (principal)
CPT/HCPCS: 88175; G0145

== ENCOUNTER → 2020-07-25 | Outpatient (CLI) | payer MEDICAID, SELFPAY ==
[2020-07-25 11:40] VITALS: BMI 31.1
[2020-07-25 15:28] LABS: Hematocrit 41.6 % (37-47)
[2020-07-25 16:04] LABS: Ferritin 45 ng/mL (8-252)
[2020-07-27 09:00] LABS: Thyroid Peroxidase AB < 9 IU/mL (0-34)
== END | disposition home or self-care (01) ==
LOC: LABSPEC 12:32
PROVIDERS: PCP Internal Medicine; Visit Provider Internal Medicine Endocrinology, Diabetes & Metabolism
DX: E61.1 Iron deficiency (principal); R94.6 Abnormal results of thyroid function studies
CPT/HCPCS: 82728; 85014; 85018; 86376

== ENCOUNTER → 2020-08-04 | Outpatient (CLI) | payer MEDICAID, SELFPAY ==
[2020-07-25 11:40] VITALS: BMI 31.1
--- NOTE | 2020-08-04 07:59 | US_ITS ---
STUDY: THYROID ULTRASOUND REASON FOR EXAM: Female, 25 years old. THYROID NODULE - TI RADS SCORE PLEASE TECHNIQUE: Ultrasound evaluation of the thyroid was performed with real-time and static burgos-scale imaging. COMPARISON: None. FINDINGS: RIGHT LOBE: The right lobe of the thyroid gland is enlarged and measures 7.7 cm x 2.1 cm x 1.9 cm. There is a heterogeneous echotexture. Multiple solid and cystic nodules are seen. The largest solid hypoechoic nodule measures 1.9 cm x 1.5 cm x 0.9 cm. This is in the mid pole of the right lobe. Intranodular vascularity is seen. A dominant complex cystic nodule with debris measuring 1.8 cm x 1 cm x 1.2 cm is seen in the lower pole of the right lobe. LEFT LOBE: The left lobe of the thyroid gland measures 5.9 cm x 1.9 cm x 1.3 cm. There is a heterogeneous echotexture. Multiple nodules are seen both solid and cystic. The largest solid/cystic nodule measures 1.7 cm x 1.4 cm x 1 cm. This lies in the lower pole. Intranodular vascularity is seen. ISTHMUS: The isthmus measures 2.0 mm. The regional lymph nodes are normal. The right parathyroid gland is enlarged and measures 1.5 cm x 0.8 cm x 0.6 US/Thyroid IMPRESSION: Dominant solid nodule measuring 1.9 cm x 1.5 cm x 0.9 cm in the midpole of the right lobe of the thyroid. A 1.8 cm x 1 cm x 1.2 cm predominantly cystic nodule with debris within it is seen in the lower pole. 1.7 cm x 1.4 cm x 1 cm complex solid and cystic nodule in the lower pole of the left lobe. Biopsies of the dominant nodules suggested. TIRADS category: 4 Electronically Signed: Bong Bradford, at 9:55 EDT , Service support ,
== END | disposition home or self-care (01) ==
LOC: US 07:59
PROVIDERS: PCP Internal Medicine; Referring Provider Internal Medicine Endocrinology, Diabetes & Metabolism; Visit Provider Internal Medicine Endocrinology, Diabetes & Metabolism
DX: E04.1 Nontoxic single thyroid nodule (principal)
CPT/HCPCS: 76536

== ENCOUNTER → 2020-08-22 | Outpatient (CLI) | payer MEDICAID, SELFPAY ==
[2020-07-25 11:40] VITALS: BMI 31.1
[2020-08-22 16:46] LABS: Calcium,Total 9.1 mg/dL (8.5-10.1); Thyroid Stim Hormone (TSH) 0.62 uIU/mL (0.358-3.74)
[2020-08-23 09:05] LABS: PTHIN 46.1 pg/mL (18.4-80.1)
== END | disposition home or self-care (01) ==
LOC: MTLAB 14:03
PROVIDERS: PCP Internal Medicine; Referring Provider Otolaryngology; Visit Provider Otolaryngology
DX: E04.2 Nontoxic multinodular goiter (principal)
CPT/HCPCS: 36415; 82310; 83970; 84443

== ENCOUNTER → 2020-12-15 14:35 | Outpatient (CLI) | payer MEDICAID, SELFPAY ==
[2020-12-15 13:51] VITALS: BMI 24.3
[2020-12-15 17:14] LABS: Absolute Lymphocyte Count 1.41 X10^3/uL (0.83-4.51); Absolute Neutrophil Count 5.5 X10^3/uL (2.0-7.7); Basophil# 0.03 X10^3/uL; Basophil% 0.4 % (0-1); Eosinophil# 0.15 X10^3/uL; Hematocrit 36.7 % (37-47); Hemoglobin 12.6 g/dL (12.0-15.0); Lymphocyte # 1.41 X10^3/ul (4.0); Lymphocyte % 18.5 % (19-41); Mean Corp Hgb Conc 34.3 g/dL (32-36); Mean Corpuscular Hgb 30.8 pg (27.0-32.0); Mean Corpuscular Volume 89.7 fL (81-99); Mean Platelet Vol. 9.8 fl (6.2-12.0); Monocyte# 0.56 X10^3/uL; Monocyte% 7.3 % (0-10); NRBC Flagged by Analyzer 0 % (0-5); Neutrophil # 5.45 X10^3/uL (2.7-7.7); Neutrophil % 71.3 % (47-70); Platelet Count 303 K/mm3 (150-450); RBC Distribution Width CV 11.9 % (11.6-14.6); RBC Distribution Width SD 38.5 fl (35.1-43.9); Red Blood Count 4.09 M/mm3 (4.2-5.4); White Blood Count 7.6 K/mm3 (4.4-11.0)
[2020-12-15 18:30] LABS: Amphetamine Urine VISTA NEGATIVE (<1000 ng/mL); Barbiturate Urine VISTA NEGATIVE (< 200 ng/mL); Benzodiazepine Urine VISTA NEGATIVE (< 200 ng/mL); Cocaine Urine VISTA NEGATIVE (< 300 ng/mL); Ecstacy Urine VISTA NEGATIVE (< 500 ng/mL); Methadone Urine VISTA NEGATIVE (< 300 ng/mL); PCP Urine VISTA NEGATIVE (< 25 ng/mL); THC Urine VISTA NEGATIVE (< 50 ng/mL); Vista UDS pH Range 7
[2020-12-16 09:25] LABS: HIV - WCH Non-Reactive (Nonreactive); Hepatitis B Surface Antigen Non-Reactive (Nonreactive); Hepatitis C Antibody Non-Reactive (Nonreactive); Rubella IgG Reactive (Nonreactive)
[2020-12-20 14:19] LABS: Chlamydia By Nucleic Acid AMP NEGATIVE; HPV Reflexed? NOT INDICATED
[2020-12-20 14:21] LABS: Gonococcus By Nucleic Acid AMP NEGATIVE
[2020-12-22 01:40] LABS: Rapid Plasmin Reagin (RPR) NONREACTIVE (NONREACTIVE)
== END ==
PROVIDERS: PCP Internal Medicine; Referring Provider Obstetrics & Gynecology; Visit Provider Obstetrics & Gynecology
DX: Z34.80 Encounter for supervision of other normal pregnancy, unspecified trimester (principal)
CPT/HCPCS: 36415; 80307; 85025; 86592; 86703; 86762; 86803; 86850; 86900; 86901; 87086; 87088; 87340; 87491; 87591; 88142

== ENCOUNTER → 2021-04-28 10:56 | Outpatient (CLI) | payer MEDICAID, SELFPAY ==
[2021-04-05 11:58] VITALS: BMI 26.2
[2021-04-28 11:19] LABS: Absolute Lymphocyte Count 1.22 X10^3/uL (0.83-4.51); Absolute Neutrophil Count 6.3 X10^3/uL (2.0-7.7); Basophil# 0.02 X10^3/uL; Basophil% 0.2 % (0-1); Eosinophil# 0.27 X10^3/uL; Eosinophils% 3.2 % (0-5); Hematocrit 37.5 % (37-47); Hemoglobin 12.7 g/dL (12.0-15.0); Lymphocyte # 1.22 X10^3/ul (0.83-4.51); Lymphocyte % 14.6 % (19-41); Mean Corp Hgb Conc 33.9 g/dL (32-36); Mean Corpuscular Hgb 31.6 pg (27.0-32.0); Mean Corpuscular Volume 93.3 fL (81-99); Mean Platelet Vol. 8.6 fl (6.2-12.0); Monocyte# 0.48 X10^3/uL; Monocyte% 5.7 % (0-10); NRBC Flagged by Analyzer 0 % (0-5); Neutrophil % 75.5 % (47-70); Platelet Count 254 K/mm3 (150-450); RBC Distribution Width CV 12.8 % (11.6-14.6); RBC Distribution Width SD 43.3 fl (35.1-43.9); Red Blood Count 4.02 M/mm3 (4.2-5.4); White Blood Count 8.4 K/mm3 (4.4-11.0)
[2021-04-28 11:31] LABS: Glucose Challenge Gest 1H 50g 124 mg/dL (70-140)
== END ==
PROVIDERS: Nurse Practitioner Women's Health; PCP Internal Medicine; Referring Provider Obstetrics & Gynecology; Visit Provider Obstetrics & Gynecology
DX: Z34.80 Encounter for supervision of other normal pregnancy, unspecified trimester (principal)
CPT/HCPCS: 36415; 82950; 85025

== ENCOUNTER → 2021-06-28 13:10 | Outpatient (CLI) | payer MEDICAID, SELFPAY ==
[2021-06-28 11:30] VITALS: BMI 28.3
== END ==
PROVIDERS: PCP Internal Medicine; Visit Provider Obstetrics & Gynecology
DX: Z34.80 Encounter for supervision of other normal pregnancy, unspecified trimester (principal)
CPT/HCPCS: 87081

== ENCOUNTER 2021-07-11 11:25 | Outpatient (CLI) | payer MEDICAID, SELFPAY ==
[2021-07-05 08:55] VITALS: BMI 30.7
[2021-07-11 11:36] VITALS: BMI 30.9
[2021-07-11 11:40] VITALS: BP 138/81; PULSE 93; TEMP 36.6
--- NOTE | 2021-07-19 12:23 | OB.TRI.PN ---
Progress Notes Date of Service: 07/11/21 Progress Note: Patient presents for triage evaluation secondary to contracitons FHT: 130 Moderate variability reactive no decelerations category I tracing [place]: q 4-6 Contractions Assessment and plan: false labor no cervical change Reactive NST, reassuring maternal and status patient discharged to home to follow-up as schedule. See problem list details for additional plan information. Charges/Coding Procedures Urinary/Genital 52xxx-59xxx: 17694-08 non-stress test Interp
== END 2021-07-11 13:35 | disposition home or self-care (01) ==
LOC: WPOUT 11:36 → WP 11:36
PROVIDERS: PCP Internal Medicine; Referring Provider Obstetrics & Gynecology; Visit Provider Obstetrics & Gynecology
DX: O47.9 False labor, unspecified (principal); Z3A.00 Weeks of gestation of pregnancy not specified
CPT/HCPCS: 59025; 59050; 99218; G0378

== ENCOUNTER 2021-07-12 00:23 | Inpatient (IN) | payer MEDICAID, SELFPAY ==
[2021-07-11 11:36] VITALS: BMI 30.9
[2021-07-12] VITALS (147 sets, daily range): BP systolic 98–162; BP diastolic 57–96; PULSE 91–184; RESP 16–18; TEMP 36.2–37.3; O2SAT 82–100; BMI 30.9
--- NOTE | 2021-07-12 00:51 | HP.PCM.OB_ITS ---
HPI - General General Date of Admission: 07/12/21 HPI Narrative ANGELIQUE BROOKS, is a 26 F who presents in active labor made cervical change to 4 cm 70-1 soft mid position. Patient had some spotting but no loss of fluid admits good movement and increasing contractions throughout the day today. Maternal Data Information MELVIN Calculator Estimated Delivery Date Method Current WG Current Estimate 07/25/21 LMP (Certain) 38w 1d Other Estimates 07/25/21 Ultrasound #1 38w 1d PFSH PFS Medical History (Updated 07/12/21 @ 00:[address] Alem Rabago MD) Asthma diarrhea lasting a week Environmental allergies Migraine Thyroid nodule Home Medications multivitamin no.47-iron fum 27 mg-folate no.1 1 mg-dha 300 mg capsule 1 cap PO DAILY 12/06/20 [History Last Taken 07/10/21 20:00] pediatric multivitamin-iron 1 tab PO DAILY 12/06/20 [History Last Taken 07/10/21 20:00] Allergy/AdvReac Type Severity Reaction Status Date / Time Penicillins Allergy Mild rash Verified 07/11/21 12:07 Family History Mother Crohns disease Sister Crohns disease Grandmother Lung cancer Grandfather Colon cancer Social History household members: family number of children: 1 current occupational status: unemployed Smoking Status: Never smoker alcohol intake: never substance use type: does not use caffeine: Yes what type of physical activity do you participate in: walking frequency: 3-4 times per week seatbelt use: always do you feel safe at home: Yes additional social history: Single- Jose Angel-[employer] History 2 Elective abortions Hx Para 1 Spontaneous abortions Hx # Term Pregnancies 1 Ectopic pregnancies Hx # Pregnancies Multiple births # of living children 1 Past Pregnancies Del. Date Name GA/Weeks Outcome Route Bth Weight Infant Gen Labor Lgth Anesthesia Del Locatn Provider FOB 03/30/19 Paiyzlee 40 live - full term 6lbs 15oz Femal e 19 hours epidural [facility] Jose Angel Delivery Date: 03/30/19 Epidural x2 with inadequate pain control- pudendal block with 1% lido; nuchal cord x1 loose; 1st degree laceration Priya Whitehead Visit Details Expected Delivery Route/Plan Labor Preferences- labor support person: Jose Angel labor intervention preferences: [] pain management options preferred: open to epidural cut cord/dad catch: yes : no PP control planned: [] discussed possible routes of delivery and associated risks: [] special requests: [] Plans covid status: non immune flu vaccine: no tdap vaccine: given 05/12 rhogam: na LARC form signed: declined movement and labor precautions reviewed. Problem list reviewed and updated with the most current plan of care details and appropriate orders placed. Relevant counseling for the gestational age provided. Continue routine care and follow up unless otherwise noted in visit notes/problem list details OB Flowsheet Initial Weight: 125 lb Date -?-?-?-?-?-?-?-?-?-?-?-?- EGA Weight BP Urine Prot -?-?-?-?-?-?-?-?-?-?-?-?- Glucose FHR FuHt Pres Dilation -?-?-?-?-?-?-?-?-?-?-?-?- Effaced St Visit Note 12/15/20 -?-?-?-?-?-?-?-?-?-?-?-?- 8w 2d 129 lb (+4 lb) 122/72 -?-?-?-?-?-?-?-?-?-?-?-?- 175 -?-?-?-?-?-?-?-?-?-?-?-?- SM- CRL 1.6 cm c ons with LMP 01/13/21 -?-?-?-?-?-?-?-?-?-?-?-?- 12w 3d 132/86 -?-?-?-?-?-?-?-?-?-?-?-?- 150 -?-?-?-?-?-?-?-?-?-?-?-?- SM- no vb crampi ng doing well 02/09/21 -?-?-?-?-?-?-?-?-?-?-?-?- 16w 2d 133 lb 6 oz (+8 lb 6 oz) 120/88 Negative -?-?-?-?-?-?-?-?-?-?-?-?- Negative 157 -?-?-?-?-?-?-?-?-?-?-?-?- MH-No VB, LOF. S light flutters. Anatomy US ordered. 03/10/21 -?-?-?-?-?-?-?-?-?-?-?-?- 20w 3d 139 lb (+14 lb) 130/70 Negative -?-?-?-?-?-?-?-?-?-?-?-?- Negative 145 20 -?-?-?-?-?-?-?-?-?-?-?-?- SM- no vb crampi ng anatomy us done this week 04/05/21 -?-?-?-?-?-?-?-?-?-?-?-?- 24w 1d 143 lb (+18 lb) 110/72 Negative -?-?-?-?-?-?-?-?-?-?-?-?- Negative 154 -?-?-?-?-?-?-?-?-?-?-?-?- MH-No VB, LOF. More cramping/pressure. Relieved with rest. 04/28/21 -?-?-?-?-?-?-?-?-?-?-?-?- 27w 3d 145 lb 6 oz (+20 lb 6 oz) 120/78 Negative -?-?-?-?-?-?-?-?-?-?-?-?- Negative 150 27 -?-?-?-?-?-?-?-?-?-?-?-?- GP - no LOF, VB, DFM, ctx. Third trimester labs nl. 05/12/21 -?-?-?-?-?-?-?-?-?-?-?-?- 29w 3d 147 lb 8 oz (+22 lb 8 oz) 106/60 Negative -?-?-?-?-?-?-?-?-?-?-?-?- Negative 145 29 -?-?-?-?-?-?-?-?-?-?-?-?- SM- no vb lof go od fm no regular ctx. pepcid for reflux 05/26/21 -?-?-?-?-?-?-?-?-?-?-?-?- 31w 3d 150 lb 2 oz (+25 lb 2 oz) 110/80 Negative -?--?-?-?-?-?-?-?-?-?-?-?- Negative 145 31 -?-?-?-?-?-?-?-?-?-?-?-?- GP - no LOF, VB, DFM, ctx. Denies complaints. 06/09/21 -?-?-?-?-?-?-?-?-?-?-?-?- 33w 3d 154 lb (+29 lb) 130/80 Negative -?-?-?-?-?-?-?-?-?-?-?-?- Negative 150 33 -?-?-?-?-?-?-?-?-?-?-?-?- GP - no LOF, VB, DFM, ctx. [place]ann[place]ora foggy after starting pepcid. Feeling better not that she has discontinued it. Not having severe heartburn any more. 06/20/21 -?-?-?-?-?-?-?-?-?-?-?-?- 35w 0d 158 lb (+33 lb) 122/86 -?-?-?-?-?-?-?-?-?-?-?-?- 145 36 Cephalic -?-?-?-?-?-?-?-?-?-?-?-?- SM- no vb lof go od fm no reuglar ctx 06/28/21 -?-?-?-?-?-?-?-?-?-?-?-?- 36w 1d 161 lb 6 oz (+36 lb 6 oz) 118/80 Negative -?-?-?-?-?-?-?-?-?-?-?-?- Negative 160 37 Cephalic 1 -?-?-?-?-?-?-?-?-?-?-?-?- 50 MH-NO Vb , LOF. Good FM. GBS 07/05/21 -?-?-?-?-?-?-?-?-?-?-?-?- 37w 1d 162 lb 8 oz (+37 lb 8 oz) 126/88 Negative -?-?-?-?-?-?-?-?-?-?-?-?- Negative 140 37 Cephalic 1 -?-?-?-?-?-?-?-?-?-?-?-?- 50 -3 GP - no LO F, VB, DFM, ctx. Noticing increased swelling. Equal bilaterally. BP nl. Discussed elevation and compression socks. 07/12/21 -?-?-?-?-?-?-?-?-?-?-?-?- 38w 1d 163 lb 9.6 oz (+38 lb 9.6 oz) -?-?-?-?-?-?-?-?-?-?-?-?- -?-?-?-?-?-?-?-?-?-?-?-?- NST FHR Rate Baby A Baseline: 140 Variability:: Moderate Accelerations:: 15 x 15 Decelerations:: None NST Reactive:: Yes FHR Category:: Category I Uterine Activity:: q3-5 ROS Constitutional Constitutional: Reports systems reviewed and no addt'l complaints, except as documented ENT HEENT: Reports systems reviewed and no addt'l complaints, except as documented Cardiovascular Cardiovascular: Reports systems reviewed and no addt'l complaints, except as documented Respiratory/Chest Respiratory/Chest: Reports systems reviewed and no addt'l complaints, except as documented Gastrointestinal Gastrointestinal: Reports systems reviewed and no addt'l complaints, except as documented and nausea; Denies abdominal pain Genitourinary Genitourinary: Reports systems reviewed and no addt'l complaints, except as documented, contractions Details: present and frequency (regular ) and movement Details: present Musculoskeletal Musculoskeletal: Reports systems reviewed and no addt'l complaints, except as documented Integumentary Integumentary: Reports as per HPI Neurologic Neurologic: Reports systems reviewed and no addt'l complaints, except as documented Endocrine Endocrinology: Reports systems reviewed and no addt'l complaints, except as documented Vital Signs Vital Signs Vital Signs: 07/12/21 00:18 Pulse Rate 107 H Pulse Ox 98 Weight Weight: 163 lb 9.6 oz Body Mass Index (BMI) 30.9 Physical Exam Const alert, oriented x3 and healthy appearing Constitutional Narrative: uncomfortable with contractions HEENT normocephalic and moist oral mucous membranes Head and Scalp: atraumatic Neck full ROM, no lymphadenopathy, supple and thyroid normal General: trachea midline Thyroid: thyroid normal Lymph Lymphatic: no lymphadenopathy noted Chest inspection of chest normal Resp normal respiratory effort Cardio regular rate GI normal to inspection, nondistended, normoactive bowel sounds, soft to palpation and non-tender Inspection: gravid external exam normal Bimanual Exam - Vag & Uterus: uterus non-tender Manual OB Exam: estimated gestational size appropriate, presentation cephalic, dilated, effaced and station Extremity normal to inspection General Extremity: Negative for edema Skin no rashes or lesions noted Neuro deep tendon reflexes 2+ bilaterally Motor Exam: strength 5/5 throughout and clonus absent Psych mental status grossly normal Labs Labs Labs: Blood Type B POSITIVE Antibody Screen NEGATIVE Hct 37.5 % (37-47) Hgb 12.7 g/dL (12.0-15.0) Obstetrics US Rubella IgG Antibody Reactive (Nonreactive) Hep Bs Antigen Non-Reactive (Nonreactive) Neisseria gonorrhoeae DNA (APURVA) NEGATIVE HIV 1&2 Antibody Non-Reactive (Nonreactive) C.trachomatis DNA (PCR) Negative (Negative) Glucose 1 Hr 50 gm 124 mg/dL (70-140) Rhogam given: No Assessment & Plan (1) Asthma: COMMENT: albuterol PRN (2) Thyroid nodule: COMMENT: sees Arun Malhotra (3) : QUALIFIERS: Weeks of gestation: 37 weeks Qualified Code(s): Z3A.37 - 37 weeks gestation of COMMENT: declines genetic and declines carrier. 03/07/21 NL anatomy US; GBS NEG (4) Supervision of other normal : COMMENT: PRR MELVIN 07/25/21 monae Carroll PC: Rafa BF: Jose Angel (5) Active labor at term: PLAN: Patient presents IAL, plan expectant management for , pitocin/AROM PRN if needed. Pain management: Plans epidural. GBS negative. Management of any complications: None I have reviewed the [facility] and made any clinically relevant updates.
[2021-07-12 00:54] LABS: Absolute Lymphocyte Count 1.89 X10^3/uL (0.83-4.51); Absolute Neutrophil Count 6.8 X10^3/uL (2.0-7.7); Basophil# 0.03 X10^3/uL; Basophil% 0.3 % (0-1); Eosinophil# 0.14 X10^3/uL; Eosinophils% 1.4 % (0-5); Hematocrit 41.1 % (37-47); Lymphocyte # 1.89 X10^3/ul (0.83-4.51); Lymphocyte % 19.2 % (19-41); Mean Corp Hgb Conc 34.1 g/dL (32-36); Mean Corpuscular Hgb 31.5 pg (27.0-32.0); Mean Corpuscular Volume 92.6 fL (81-99); Mean Platelet Vol. 10.1 fl (6.2-12.0); Monocyte# 0.95 X10^3/uL; Monocyte% 9.6 % (0-10); NRBC Flagged by Analyzer 0 % (0-5); Neutrophil # 6.78 X10^3/uL (2.7-7.7); Neutrophil % 68.9 % (47-70); Platelet Count 260 K/mm3 (150-450); RBC Distribution Width SD 43.8 fl (35.1-43.9); Red Blood Count 4.44 M/mm3 (4.2-5.4); White Blood Count 9.9 K/mm3 (4.4-11.0)
[2021-07-12] MEDS: Lactated Ringers 1,000 ML 50 ML IV (01:00)
[2021-07-12] MEDS: Lactated Ringers 500 ML 999 ML IV ×2 (02:16→03:30)
[2021-07-12] MEDS: Mag Hydrox/Al Hydrox/Simeth 30 ML UDC PO (02:57)
[2021-07-12] MEDS: fentaNYL-bupivacaine (epidural) 100 ML BAG EPIDURAL (03:27)
--- NOTE | 2021-07-12 04:19 | EKG12_ITS ---
Test Reason : TACHYCRDIA Blood Pressure : / mmHG Vent. Rate : 141 BPM Atrial Rate : 141 BPM P-R Int : 126 ms QRS Dur : 074 ms QT Int : 288 ms P-R-T Axes : 073 076 009 degrees QTc Int : 441 ms Sinus tachycardia Otherwise normal ECG No previous ECGs available Confirmed by KIRILL VALADEZ, DELIA ([id number]), editor book BEN HOLDEN ([id number]) on 07/13/2021 9:22:36 AM Referred By: Alem Rabago Confirmed By:DELIA ROY MD
[2021-07-12] MEDS: Lactated Ringers 1,000 ML 200 ML IV (07:31)
[2021-07-12] MEDS: Oxytocin 30 units/NS 500 ml 30 UNITS/500 ML IV.SOLN 334 UNITS IV (10:18)
[2021-07-12] MEDS: Methylergonovine 0.2 MG/ML Ampul IM (10:25)
[2021-07-12] MEDS: oxyCODONE 5 MG Tablet PO (11:36)
--- NOTE | 2021-07-12 11:36 | OP.PCM_ITS ---
Assessment & Plan (1) Spontaneous vaginal delivery: (2) Active labor at term: (3) Supervision of other normal : COMMENT: PRR MELVIN 07/25/21 monae Glen PC: Rafa BF: Jose Angel (4) : QUALIFIERS: Weeks of gestation: 37 weeks Qualified Code(s): Z3A.37 - 37 weeks gestation of COMMENT: declines genetic and declines carrier. 03/07/21 NL anatomy US; GBS NEG (5) Thyroid nodule: COMMENT: sees Arun Malhotra (6) Asthma: COMMENT: albuterol PRN Maternal Data Information MELVIN Calculator Estimated Delivery Date Method Current WG Current Estimate 07/25/21 LMP (Certain) 38w 1d Other Estimates 07/25/21 Ultrasound #1 38w 1d Vaginal Delivery Maternal Presentation Maternal Presentation: Active Labor Maternal Presentation: 26-year-old G2, P1 at 38 weeks in active labor. Patient made cervical change to dilation following artificial rupture membranes Type of Induction: Amniotomy Operative Information Date of Procedure: 07/12/21 Pre-Operative Diagnosis: Term , active labor Post-Operative Diagnosis: Same Surgery / Procedure Performed: Spontaneous Vaginal Delivery Type of Anesthesia: Epidural Estimated Blood Loss: 300 Findings Description of Procedure: Patient began pushing and delivered the head in the SHELBY presentation. The head was delivered atraumatically and no nuchal cord was noted. The anterior and posterior shoulders delivered without complication followed by the rest of the and the infant was placed on the maternal abdomen. Delayed cord clamping was employed for approximately 60 seconds. Cord was clamped and cut and gentle traction was applied to the cord and the placenta delivered spontaneously immediately following it was noted to be intact with three-vessel cord. The perineum and vagina were inspected and noted to have no laceration. EBL was 300 cc. Patient and tolerated delivery well. Presentation: Vertex and SHELBY Amniotic Membrane Rupture Type: Artificial Amniotic Fluid Description: Clear Placental Delivery Description: Spontaneous Cord Vessel Description: 3 Vessels Cord Entanglement: None A Gender: Male Delayed Cord Clamping: Yes Post Vaginal Delivery Medications Given After Delivery: IV Pitocin and IM Methergin Episiotomy Description: None Laceration: None Complication Complications: None Procedures Urinary/Genital [id number]: [id number] Vaginal Delivery+PP Care([facility])
--- NOTE | 2021-07-12 11:39 | PCM.DC ---
Discharge Instructions Diet Discharge Diet: No restrictions Activity Discharge Activity: Return to Normal Activity, May Not Drive (while taking narcotic pain medications.) and May Shower May resume sexual activity in: 4-6 weeks Dressing / Incision Call your doctor if your incision/area has: Continuous Slow Oozing, Sudden Increased Bleeding, Increased Pain/ Swelling, Increased Redness and Foul Smelling Discharge Follow Up Care When: Call to make an appointment with your doctor in 6 weeks. If you had elevated Blood Pressure or 4th degree laceration you will need to be seen in 2 weeks. Test Results: Test results from this visit will be discussed in further detail at your follow-up appointment, if applicable. Discharge Plan Admission Admit Date/Time: 07/12/21 00:23 Attending Provider: Giovana Lunsford Primary Care Provider: Mara Shay Instructions Patient Instructions: After a Vaginal Discharge Orders/Prescriptions Prescriptions: New ibuprofen 800 mg tablet 800 mg PO Q8H PRN (Reason: pain) Qty: 30 RF: 1 Continued PNV-DHA 27 mg iron-1 mg -300 mg capsule 1 cap PO DAILY RF: 0 Arron/Iron Tablet,Chewable 1 tab PO DAILY RF: 0 Referrals / Follow Up: Mara Shay DO [Primary Care Provider] -
[2021-07-12] MEDS: 0.9% Saline Lock 10 ML Syringe IV (12:33)
[2021-07-13 04:26] VITALS: BP 120/78; PULSE 92; RESP 18; TEMP 36.4
--- NOTE | 2021-07-13 07:30 | PCM.PN.OB ---
Subjective Subjective Patient doing well without complaints. Tolerating PO. Ambulating and voiding without difficulty. Breast feeding well. Denies chest pain, shortness of breath, calf pain/swelling, fevers, chills, lightheadedness. Objective Data Objective Data Vital Signs: Vital Signs Temp Pulse Resp BP Pulse Ox 97.5 F L 92 18 120/78 99 07/13/21 04:26 07/13/21 04:26 07/13/21 04:26 07/13/21 04:26 07/12/21 16:47 Oxygen Delivery Method Room Air Weight: 163 lb 9.6 oz Body Mass Index (BMI) 30.9 Intake & Output: Intake and Output for Last 24 Hours 07/11/21 07/12/21 07/13/21 23:59 23:59 23:59 Intake Total 3205.98 / 3205.98 Output Total 1670 / 1670 Balance 1535.98 / 1535.98 Lab / Micro Data Result Diagrams: 07/12/21 00:40 Micro: Microbiology 07/12/21 00:45 Mucosa - Nasopharyngeal SARS-CoV-2 Antigen (Rapid) - Final ROS Constitutional Constitutional: Denies fever(s) Cardiovascular Cardiovascular: Denies chest pain, dyspnea or lightheadedness Gastrointestinal Gastrointestinal: Reports abdominal pain; Denies constipation or diarrhea Neurologic Neurologic: Denies dizziness or headache(s) Physical Exam Const alert, oriented x3, no apparent distress, average body habitus, healthy appearing and well nourished HEENT normocephalic Head and Scalp: atraumatic Eyes PERRL and EOMs intact bilaterally Neck full ROM Lymph Lymphatic: no lymphadenopathy noted Resp normal respiratory effort, no retractions and no use of accessory muscles Cardio regular rate GI soft to palpation, non-tender and non-distended Palpation: other Other Details: fundus firm Extremity normal to inspection and no clubbing, cyanosis or edema Skin no rashes or lesions noted Neuro no focal motor deficits and no sensory deficits noted Psych mental status grossly normal, affect normal and speech normal Assessment & Plan (1) Spontaneous vaginal delivery: COMMENT: DEDRICK HYATT 07/12 Boy-Bronsyn PLAN: s/p PPD # 1 1. routine post delivery care 2. breast feeding- support given 3. rh positive 4. rubella immune
[2021-07-13 08:00] VITALS: BP 114/79; PULSE 99; RESP 14; TEMP 36.3; O2SAT 99
[2021-07-13 12:06] VITALS: BP 108/76; PULSE 88; RESP 14; TEMP 36.4; O2SAT 98
== END 2021-07-13 14:15 | disposition home or self-care (01) | DRG 560 ==
LOC: WPOUT 00:23 → WP 00:23
PROVIDERS: Admitting Provider Obstetrics & Gynecology; PCP Internal Medicine; Visit Provider Obstetrics & Gynecology
DX: O99.284 Endocrine, nutritional and metabolic diseases complicating childbirth (principal); E04.1 Nontoxic single thyroid nodule; J45.909 Unspecified asthma, uncomplicated; O99.52 Diseases of the respiratory system complicating childbirth; Z3A.38 38 weeks gestation of pregnancy; Z37.0 Single live birth; O47.9 False labor, unspecified
CPT/HCPCS: 59025; 59050; 85025; 86850; 86900; 86901; 87426; 93005; 99218; J7120; A4216; G0378; J3490

== ENCOUNTER → 2021-09-20 | Outpatient (CLI) | payer MEDICAID, SELFPAY | END | disposition home or self-care (01) | LOC: LABSPEC 16:18 | PROVIDERS: PCP Internal Medicine; Referring Provider Nurse Practitioner Women's Health; Visit Provider Nurse Practitioner Women's Health | DX: N76.0 Acute vaginitis (principal) | CPT/HCPCS: 87070; 87205 ==

== ENCOUNTER → 2021-10-23 13:17 | Outpatient (CLI) | payer MEDICAID, SELFPAY ==
--- NOTE | 2021-10-23 15:20 | SP.MBSS_ITS ---
Modified Barium Swallow - Patient Information Study Date: 10/23/21 Study Time: 13:30 Direct Billable Minutes: 75 Total Minutes procedure & reportin Diagnosis: Dysphagia, unspecified (R13.10) Referring Physician: Rogers Dias Reason for Referral: Assess for swallow dysfunction and aspiration risk. Medical History: The patient is a 26 year old female with PMH including gastroesophageal reflux, esophageal spasms, recent , and thyroid nodules. The patient reported that she had severe reflux during her recent , which resulted in increased difficulty swallowing. She had one episode of a bite of bagel becoming ?lodged? that resulted in vomiting. She has recently returned to solid foods without difficulty. She is currently taking omeprazole to manage reflux. The patient has been referred for MBS study from her GI doctor to rule out pharyngeal swallow dysfunction and aspiration risk. Current Diet Ordered: Regular Textures / Thin Liquids Dentition: WNL Mental Status: WNL Respiratory Status: Oxygenating on Room Air - Penetration-Aspiration Scale Penetration-Aspiration Scale: OBJECTIVE ASSESSMENT OF SWALLOW FUNCTION (QUANTITATIVE ? PER TRIAL): PENETRATION / ASPIRATION SCALE (EDUARDO): 1 = does not enter airway 2 = enters airway/above vocal folds/ejected 3 = enters airway/above vocal folds/not ejected 4 = enters airway/contacts vocal folds/ejected 5 = enters airway/contacts vocal folds/not ejected 6 = enters airway/below vocal folds/ejected 7 = enters airway/below vocal folds/not ejected despite effort 8 = enters airway/below vocal folds/no effort VIDEOFLOROSCOPIC SCALE SCORE (EDUARDO): Grade I = aspiration of material that has penetrated into the laryngeal vestibule, intact cough reflex Grade II = aspiration < 10 % of the bolus, intact cough reflex Grade III = aspiration of < 10 % of the bolus, reduced cough reflex or aspiration of > 10 % of the bolus, intact cough reflex Grade IV = aspiration of > 10 % of the bolus, reduced cough reflex - Penetration-Aspiration Scale Score Thin Liquid via teaspoon Result: 1= does not enter airway Thin Liquid via teaspoon Trial 2 Result: 1= does not enter airway Thin Liquid via small single sip from cup Result: 1= does not enter airway Thin Liquid via sequential sips from cup Result: 1= does not enter airway [place] Thick Liquid via small single sip from cup Result: 1= does not enter airway [place] Thick Liquid via small single sip from cup Result: 1= does not enter airway Pudding with esophageal screen Result: 1= does not enter airway Cookie Result: 1= does not enter airway Thin Liquid via single sip from straw Result: 1= does not enter airway Thin Liquid via single sip from straw Double swallow Result: 1= does not enter airway - Oral Phase Labial Seal: No Labial Escape Tongue Control During Bolus Hold: Cohesive bolus between tongue to palatal seal Bolus Preparation/Mastication: Timely and efficient chewing and mashing Bolus Transport/Lingual Motion: Brisk tongue motion Oral Residue: Trace residue lining oral structures - Pharyngeal Phase Initiation of Pharyngeal Swallow: Bolus head at posterior angle of ramus at first hyoid excursion Soft Palate Elevation: Trace column of contrast/air between soft palate and pharyngeal wall Laryngeal Elevation: Comp. Superior move thyroid cart w/comp. apprx arytenoid cart-epig pet Anterior Hyoid Excursion: Partial anterior movement Epiglottic Movement: Partial inversion Laryngeal Vestibule Closure at Height of Swallow: Complete; no air/contrast in laryngeal vestibule Pharyngeal Stripping Wave: Present - complete Pharyngoesophageal Segment Opening: Parital distension and partial duration; parital obstruction of flow Tongue Base Retraction: Trace column of contrast between tongue base & post. pharyngeal wall Pharyngeal Residue: Collection of residue within or on pharyngeal structures - Observed with retrograde flow of partial boluses from various trials through UES. - Esophageal Phase Esophageal Clearance: Esophageal retention w/ retrograde flow through pharyngoesophageal seg - Treatment Strategies Effects of treatment strategies attemped:: Decreased bolus rate = Effective. Multiple swallows = Effective. - Diagnosis/Impression Diagnosis: Swallow function grossly WNL. Impression: Overall, the patient demonstrates a functional swallow. She presents with mildly decreased anterior hyoid excursion resulting in mildly decreased epiglottic inversion; however, the patient demonstrated excellent airway closure consuming trials throughout the study due to a timely swallow and full closure of the laryngeal vestibule during the swallow. She did present with mild pharyngeal residues from retrograde bolus flow through the UES, which decreased with use of multiple swallows. No laryngeal penetration or aspiration was observed during the study. - Recommendations Diet: Regular Textures, Thin Liquids Compensatory Strategies: Small Bites, Small Sips, Slow Rate, Multiple Swallows, Sitting upright, Remain sitting upright for 30 minutes after PO intake Recommend Repeat Modified Barium Swallow: TBD - Would consider repeat MBS study if increased concerns with diet tolerance in the future. Need for Skilled Speech Therapy Services: No Comment: Skilled speech therapy services not warranted at this time. The patient verbalized use of recommended strategies and demonstrated good understanding of results and recommendations from MBS study. Recommended Referrals: GI Consult - Patient requires thorough education re: GERD management and precautions. Education Completed: 1. Described result of evaluation., 5. Patient demonstrates recommended strategies. - Status Active ST Patient: Active - Contact Information [facility] Speech Therapy:: Mara Blakely M.A. [facility] [employer] Speech-Language Pathologist [facility] [address] [place] [address] [email or web address] [phone] 10/23/21 15:30
== END ==
PROVIDERS: PCP Internal Medicine; Referring Provider Otolaryngology; Visit Provider Otolaryngology
DX: R13.10 Dysphagia, unspecified (principal)
CPT/HCPCS: 74230; 92611

== ENCOUNTER 2022-02-26 15:51 | Outpatient (CLI) | payer MEDICAID, SELFPAY ==
--- NOTE | 2022-02-26 16:06 | US_ITS ---
STUDY: THYROID ULTRASOUND REASON FOR EXAM: Female, 27 years old. MULTINODULAR GOITER TECHNIQUE: Ultrasound evaluation of the thyroid was performed with real-time and static burgos-scale imaging. COMPARISON: Comparison is made with prior examination dated 08/04/2020. FINDINGS: RIGHT LOBE: The right lobe of the thyroid gland is enlarged and measures 7.9 cm x 2 cm x 2.8 cm. There is a heterogeneous echotexture. Multiple nodules are seen. The largest nodule measures 2.2 cm x 1.9 cm x 1.4 cm. This has a complex architecture with internal debris and is located in the lower pole. Biopsy is recommended. There is also evidence of a 2 cm x 1.8 cm x 1 cm solid nodule in the mid pole as well as a 9 mm x 9 mm x 8 mm complex nodule in the upper pole. LEFT LOBE: The left lobe of the thyroid gland is enlarged and measures 6.1 cm x 1.8 cm x 1.6 cm. There is a heterogeneous echotexture. Several nodular densities are seen. The largest is a complex nodule in the lower pole measuring 1.8 cm x 1.2 cm x 1.2 cm. Biopsy recommended. ISTHMUS: The isthmus measures 1.5 mm. The regional lymph nodes are normal. US/Thyroid IMPRESSION: Multiple bilateral solid and complex nodules as described. Dominant nodule in the right lobe and left lobe as described above. Biopsy recommended. TIRADS Category 4. Electronically Signed: Bong Bradford MD at 12:33 EDT ,
== END 2022-02-26 23:59 | disposition home or self-care (01) ==
LOC: US 15:53
PROVIDERS: PCP Internal Medicine; Visit Provider Otolaryngology
DX: E04.2 Nontoxic multinodular goiter (principal)
CPT/HCPCS: 76536

== ENCOUNTER 2022-03-01 17:31 | Outpatient (CLI) | payer MEDICAID, SELFPAY ==
--- NOTE | 2022-03-01 | FLU_PTH ---
PATIENT: ANGELIQUE DIOR LOC: [facility]#:[id number] AGE/SX: 27/F ROOM: RE03/01/[address]: Dr. Rogers Dias MD : 1995 BED: DIS: 03/01/2022 SPEC #: [id number] RECD: 03/01/22 17:32 STATUS: MARGARET MARK #: [id number] YOSSI: 03/01/22 00:[address]: Rogers Dias DEPT: CYTOLOGY RECD BY: Molina Dumont ENTERED: 03/02/22 10:35 SP TYPE: Fluid OTHR DR: Dr. Mara Shay, DO Tissues: Thyroid gland, NOS Procedures: Special Stain Group II Surgery Specimen Level IV Cytospin Fluid HEADER OPERATION: Fine needle biopsy, thyroid nodule PRE-OP DIAGNOSIS: Multinodular goiter TISSUE SUBMITTED: Thyroid nodule, fine needle aspiration DIAGNOSIS CYTOLOGY Thyroid nodule, fine needle aspiration (cytospin and cell block): Consistent with benign follicular/colloid nodule. Adequate for evaluation. NASRA:pattie 03/05/2022 COMMENT Correlation with clinical, radiologic findings and appropriate follow up are necessary. CYTOLOGY STUDY Slides are reviewed. CYTOLOGY GROSS Received is 35 ml of red cloudy fluid labeled with the patient's name and and designated per the requisition as thyroid nodule. Submitted for cytology preparation including cell block. / pattie 03/02/2022 TC:5 CPT: 39759, 22104
== END 2022-03-01 23:59 | disposition home or self-care (01) ==
PROVIDERS: PCP Internal Medicine; Referring Provider Otolaryngology; Visit Provider Otolaryngology
DX: E04.2 Nontoxic multinodular goiter (principal)
CPT/HCPCS: 88108; 88305; 88313

== ENCOUNTER → 2023-02-28 | Outpatient (CLI) | payer MEDICAID, SELFPAY | END | disposition home or self-care (01) | PROVIDERS: PCP Internal Medicine; Referring Provider Obstetrics & Gynecology; Visit Provider Obstetrics & Gynecology | DX: N89.8 Other specified noninflammatory disorders of vagina (principal) | CPT/HCPCS: 87070; 87205 ==

== ENCOUNTER → 2024-09-29 | Outpatient (CLI) | payer MEDICAID, SELFPAY ==
[2024-10-05 13:43] LABS: HPV Reflexed? NOT INDICATED
== END | disposition home or self-care (01) ==
LOC: LABSPEC 16:18
PROVIDERS: PCP Internal Medicine; Referring Provider Nurse Practitioner Women's Health; Visit Provider Nurse Practitioner Women's Health
DX: Z12.4 Encounter for screening for malignant neoplasm of cervix (principal)
CPT/HCPCS: 88175; G0145